=== PATIENT | female | born 1985 | race American Indian/Alaskan Native ===

== ENCOUNTER 2017-02-18 18:54 | Emergency (ER) | payer SELFPAY ==
[2017-02-18 19:41] VITALS: BP 129/91
== END 2017-02-18 21:00 | disposition left against medical advice (07) ==
LOC: ED 18:54
DX: R22.0 Localized swelling, mass and lump, head (principal); Z53.21 Procedure and treatment not carried out due to patient leaving prior to being seen by health care provider

== ENCOUNTER 2017-02-21 01:35 | Emergency (ER) | payer OTHER ==
[2017-02-21 07:49] VITALS: BP 135/93
--- NOTE | 2017-02-21 09:48 | Emergency Department Report ---
HPI - General Chief Complaint: Skin/Abscess/Foreign Body Time Seen by Provider: 02/21/17 09:10 - HPI HPI: Is a 31-year-old female presents to ED complaining of right cheek swelling and pain for the past 4 days. Patient states she went to [facility] in [place] on Friday and was given some antibiotics and pain meds. Patient states that she started to see some drainage from her right cheeks 2 days ago. Swelling is bit bigger since Friday. Patient denies any fevers/chills/ injuries to the face/chest pain/headache/dental pain ED Past Medical Hx - Past Medical History Previous Medical History?: Yes Hx Hypertension: No Hx Congestive Heart Failure: No Hx Diabetes: No Hx Deep Vein Thrombosis: No Hx Renal Disease: No Hx Sickle Cell Disease: No Hx Seizures: No Hx Asthma: Yes Hx COPD: No Hx HIV: No - Surgical History Past Surgical History?: Yes Additional Surgical History: c sect X2 - Social History Smoking Status: Never Smoker Substance Use Type: None - Medications Home Medications: Home Medications Medication Instructions Recorded Confirmed Last Taken Type Albuterol Sulfate [Proventil HFA] 2 puff INHALATION 6XD PRN 06/23/13 04/17/15 14:00 History 2 puffs ALBUTEROL Inhaler [Proair] 2 puff IH Q6H PRN #30 inha 04/17/15 Unknown Rx Docusate Sodium [Colace CAP] 100 mg PO BID #60 capsule 04/17/15 Unknown Rx Vit No.129/Iron/Folic 1 each PO QDAY 04/17/15 04/17/15 04/16/15 History [ Tablet] oxyCODONE /ACETAMINOPHEN [Percocet 1 tab PO Q6HR PRN #30 tablet 04/17/15 Unknown Rx 5/325 mg] Ibuprofen [Motrin 800 MG tab] 800 mg PO Q8HR PRN #90 tablet 02/21/17 Unknown Rx Sulfamethoxazole/Trimethoprim 1 each PO BID #20 tablet 02/21/17 Unknown Rx [Bactrim DS TAB] ED Review of Systems ROS: Stated complaint: R SIDE FACIAL SWELLING Other details as noted in HPI Constitutional: denies: chills, fever Eyes: denies: eye pain, eye discharge, vision change ENT: denies: ear pain, throat pain Respiratory: denies: cough, shortness of breath, wheezing Cardiovascular: denies: chest pain, palpitations Endocrine: no symptoms reported Gastrointestinal: denies: abdominal pain, nausea, diarrhea Genitourinary: denies: urgency, dysuria, discharge Musculoskeletal: denies: back pain, joint swelling, arthralgia Skin: denies: rash, lesions Neurological: denies: headache, weakness, paresthesias Psychiatric: denies: anxiety, depression Hematological/Lymphatic: denies: easy bleeding, easy bruising Physical Exam - Physical Exam Vital Signs: Vital Signs 02/21/17 02/21/17 02:06 07:47 Temperature 98.5 F 98.3 F Pulse Rate 99 H 94 H Respiratory 18 18 Rate Blood Pressure 136/91 Blood Pressure 135/93 [Right] O2 Sat by Pulse 100 Oximetry Physical Exam: GENERAL: Alert and oriented x3, no apparent distress, Normal Gait, atraumatic. HEAD: Head is normocephalic and a-traumatic. MOUTH:Mouth is well hydrated and without lesions. Tonsils nonerythematous or swollen, Uvula midline, Tongue not elevated. Mucous membranes are moist. Posterior pharynx clear, no exudate or lesions. Patent airways. NECK: Supple. Non edematous, No lymphadenopathy or thyromegaly. LUNGS: Symetrical with respiration, No wheezing, no rales or crackles, CTAB. HEART: S1, S2 present, regular rate and rhythm without murmur, no rubs, no gallops. Non tender to palpation SKIN: 4- 5 cm rising on right cheek, not erythematous, nonfluctuant, mild plus drainage seen. No active draining. Warm and dry, No lesions, No ulceration or induration present. ED Course Vital Signs 02/21/17 02/21/17 02:06 07:47 Temperature 98.5 F 98.3 F Pulse Rate 99 H 94 H Respiratory 18 18 Rate Blood Pressure 136/91 Blood Pressure 135/93 [Right] O2 Sat by Pulse 100 Oximetry ED Medical Decision Making - Medical Decision Making 31-year-old female presents with right cheek cellulitis ED course: Compression applied to the right cheek. Discussed with the patient patient to keep warm presents 3 times a day and drainage might continue to happen just fine just fine Discussed patient keep sterile dressing on right cheek. Discussed patient to take her antibiotics as prescribed. I discussed the patient to follow up with primary care 3 days Vital signs are normal patient is in no acute distress. Critical care attestation.: If time is entered above; I have spent that time in minutes in the direct care of this critically ill patient, excluding procedure time. ED Disposition Clinical Impression: Cellulitis of external cheek, right Disposition: DC-01 TO HOME OR SELFCARE Is pt being admited?: No Does the pt Need Aspirin: No Condition: Stable Instructions: Cellulitis (ED), Abscess (ED) Additional Instructions: Make sure to follow up with the primary care physician as discussed. Take all your medications as you've been prescribed. If you have any worsening symptoms or develop new symptoms please return to ED immediately Apply warm compress only 3 times a day. Prescriptions: Ibuprofen [Motrin 800 MG tab] 800 mg PO Q8HR PRN #90 tablet PRN Reason: Pain Sulfamethoxazole/Trimethoprim [Bactrim DS TAB] 1 each PO BID #20 tablet Referrals: PRIMARY CARE, [Primary Care Provider] - 3-5 Days [facility] [Outside] - 3-5 Days [facility] [Outside] - 3-5 Days [facility] [Outside] - 3-5 Days Forms: Work/School Release Form(ED) Time of Disposition: 09:51
== END 2017-02-21 10:17 | disposition home or self-care (01) ==
LOC: ED 01:35
DX: L03.211 Cellulitis of face (principal); J45.909 Unspecified asthma, uncomplicated
CPT/HCPCS: 99282

== ENCOUNTER 2020-01-10 11:41 | Outpatient (CLI) | payer OTHER, MEDICAID ==
[2020-01-10] MEDS ORDERED: LACTATED RINGERS 500 ML IV ONE (12:54)
[2020-01-10 13:30] VITALS: BP 127/87
[2020-01-10 13:33] LABS: Bacteria,Urine 1+ /HPF (Negative); Bilirubin,Urine NEG (Negative); Blood,Urine NEG (Negative); Color,Urine Straw (Yellow); Protein,Urine <15 mg/dL mg/dL (Negative); Urobilinogen,Urine < 2.0 mg/dL (<2.0)
== END 2020-01-10 13:52 | disposition home or self-care (01) ==
LOC: TRG 11:41 → APU 11:42 → TRG 13:52
PROVIDERS: ATTEND Obstetrics & Gynecology
DX: O26.892 Other specified pregnancy related conditions, second trimester (principal); R10.9 Unspecified abdominal pain; M54.5 Low back pain; Z3A.22 22 weeks gestation of pregnancy
CPT/HCPCS: 59025; 81001

== ENCOUNTER 2020-01-11 20:51 | Inpatient (IN) | payer OTHER, MEDICAID ==
[2020-01-11] MEDS ORDERED: LACTATED RINGERS 1,000 ML IV ONE (21:35)
[2020-01-11] MEDS ORDERED: diphenhydrAMINE 25 MG CAP PO PRN (22:05)
[2020-01-11] MEDS ORDERED: ACETAMINOPHEN 325 MG TAB PO PRN (22:05)
[2020-01-11] MEDS ORDERED: MAGNESIUM HYDROXIDE (MOM) ORAL LIQD UDC PO PRN (22:05)
[2020-01-11] MEDS ORDERED: guaiFENesin DM 200/20 MG ORAL LIQD 10 ML PO PRN (22:05)
[2020-01-11] MEDS ORDERED: SIMETHICONE 80 MG CHEW TAB PO PRN (22:05)
[2020-01-11] MEDS ORDERED: SENNOSIDES/DOCUSATE SODIUM 8.6/50 MG TAB PO PRN (22:05)
[2020-01-11] MEDS ORDERED: DOCUSATE SODIUM 100 MG CAP PO PRN (22:05)
[2020-01-11] MEDS ORDERED: ONDANSETRON 4 MG/2 ML INJ IV PRN (22:05)
[2020-01-11] MEDS ORDERED: SODIUM CHLORIDE NASAL SPRAY 44ML NS PRN (22:05)
[2020-01-11] MEDS ORDERED: ALUM-MAG HYDROXIDE-SIMETHICONE 200-200-20MG/5ML ORAL LIQD 30 ML PO PRN (22:05)
--- NOTE | 2020-01-11 22:05 | History and Physical Report ---
History of Present Illness Date of examination: 01/11/20 Chief complaint: leaking fluid since 2016 tonight History of present illness: EDC Confirmation: 05/12/2020 Past History : 4 Term Births: 1 Premature Births: 2 Living Children: 2 Para: 3 Mult. Births: 0 Prev : 2 Aborta: 0 Elect. Ab: 0 Spont. Ab: 0 Ectopics: 0 # 1 Delivery date: 2013 Weeks Gestation: term labor: no Delivery type: Delivery location: [facility] Infant Sex: Female weight: 6# Comments: transverse # 2 Delivery date: 2014 Weeks Gestation: 20 labor: yes Delivery type: Delivery location: [place] Comments: Stillborn # 3 Delivery date: 2015 labor: yes Delivery type: Delivery location: [facility] weight: 3# Past Medical History: Asthma - PRN inhaler Past Surgical History: c/s x2 Past Medical History Surgery (Non-cook fry): c/s x2 Abnormal PAP: negative Family Hx: htn - mother, father DM - great aunt no known family hx cancer 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 Infection History Hx of STD: none HIV Risk Eval: low risk Hepatitis B Risk Eval: low risk Varicella/Chicken Pox Status: Previous Disease Genetic History Congenital Heart Defect: Mom: no Dad: no Sandra Disease: Mom: no Dad: no Thalassemia Mom: no Dad: no Neural Tube Defect Mom: no Dad: no Down's Syndrome Mom: no Dad: no Hitesh-Sachs Mom: no Dad: no Sickle Cell Disease/Trait Mom: no Dad: no Hemophilia Mom: no Dad: no Muscular Dystrophy Mom: no Dad: no Cystic Fibrosis Mom: no Dad: no Jerauld Chorea Mom: no Dad: no Mental Retardation Mom: no Dad: no Fragile X Mom: no Dad: no Other Genetic/Chromosomal Disorder Mom: no Dad: no Child w/other defect Mom: no Dad: no Enviromental Exposures Xray Exposure: no Medication, drug, or alcohol use since LMP: no Chemical/Other Exposure: no Exposure to Cat Liter: no Hx of Parvovirus (Fifth Disease): no Occupational Exposure to Children: none Active Medications (reviewed today): PNV () Current Allergies (reviewed today): No known allergies Past History Past Medical History: other (see HPI) Past Surgical History: other (see HPI) 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 (see HPI) Family/Genetic History: other (see HPI) - Obstetrical History Expected Date of Delivery: 05/12/20 Actual Gestation: 22 Week(s) 5 Day(s) : 4 Para: 3 Hx # Term Pregnancies: 1 Number of Pregnancies: 2 Spontaneous Abortions: 0 Induced : 0 Number of Living Children: 1 Medications and Allergies Allergies Allergy/AdvReac Type Severity Reaction Status Date / Time No Known Allergies Allergy Verified 02/18/17 19:39 Home Medications Medication Instructions Recorded Confirmed Last Taken Type Vitamin 1 tab PO DAILY 01/11/20 01/11/20 01/10/20 History Active Meds: Active Medications Lactated Ringer's (Lactated Ringers) 1,000 mls @ 999 mls/hr IV BOLUS ONE Stop: 01/11/20 22:35 Review of Systems All systems: negative - Vital Signs Vital signs: Vital Signs Pulse BP Pulse Ox 91 H 131/79 100 01/11/20 21:11 01/11/20 21:11 01/11/20 21:11 Temp Pulse Resp BP Pulse Ox 98.2 F 88 18 131/79 99 01/11/20 21:12 01/11/20 21:56 01/11/20 21:12 01/11/20 21:12 01/11/20 21:56 - Physical Exam Breasts: Positive: normal Cardiovascular: Regular rate Lungs: Positive: Clear to auscultation, Normal air movement Abdomen: Positive: normal appearance, soft Genitourinary (Female): Positive: normal external genitalia, normal perenium Vulva: both: normal Vagina: Positive: other (moderate amount of clear, yellow amniotic fluid) Uterus: Positive: normal size, normal contour Anus/Rectum: Positive: normal perianal skin Extremities: Positive: normal - Obstetrical FHR: auscultation normal Uterine Contraction Monitor Mode: External Cervical Dilatation: 0 station: -4 Uterine Contraction Pattern: Absent Uterine Tone Measurement Phase: Resting Results Result Diagrams: 01/12/20 Unknown All other labs normal. Assessment and Plan 34y/o @ 22+4 weeks admitted with SROM. Sterile spec + pooling. GABRIELLE decreased on u/s. baby is vertex. her hx is significant for delivery x 2, (one spontaneous and one d/t pre-e and IUGR) She also has hx c/s x 2. Plan to admit for antibiotics. She denies any cramping or contractions. Abd soft and non-tender. no current s/s infection. [facility] aware. - Patient Problems (1) 22 weeks gestation of Current Visit: Yes Status: Acute (2) premature rupture of membranes (PPROM) with unknown onset of labor Current Visit: Yes Status: Acute Plan to address problem: Amp & EES AMFM consult
--- NOTE | 2020-01-11 23:51 | Ultrasound Report ---
US OB FOLLOW UP INDICATION / CLINICAL INFORMATION: PROM. COMPARISON: None available. FINDINGS: There is a single intrauterine with an estimated sonographic gestational age of 21 weeks 6 days and an EDC of 05/17/20. Clinical dates are 22 weeks 4 days. The heart rate fluctuates betw een 76 and 151 bpm. presentation is cephalic. Amniotic fluid volume is significantly decreased with an GABRIELLE of 2.8 cm. The placenta is located posteriorly and laterally on the left, is grade 0 and is free of the os. anatomy is difficult to evaluate due to the decreased amniotic fluid volume. The cervix measures 3.9 cm in length and the internal os appears closed. There is no evidence of adn exal mass or free fluid. IMPRESSION: 1. Oligohydramnios. 2. Significant fluctuation of the heart rate between 76 and 152 bpm. Signer Name: Marcus Petty MD Signed: 01/11/2020 11:47 PM Workstation Name: [id number]
[2020-01-12] MEDS: AMPICILLIN/NS 2 GM/100 ML 2 GM/100 ML BAG IV SCH ×4 (00:29→18:30)
[2020-01-12] MEDS: LACTATED RINGERS 1,000 ML IV SCH ×2 (00:30→13:00)
[2020-01-12 01:05] LABS: Basophils # (Auto) 0.1 K/mm3 (0.0-0.1); Basophils % (Auto) 0.7 % (0.0-1.8); Eosinophils # (Auto) 0.3 K/mm3 (0.0-0.4); Hematocrit 34.1 % (30.3-42.9); Hemoglobin 11.9 gm/dl (10.1-14.3); Lymphocytes # (Auto) 2.3 K/mm3 (1.2-5.4); Lymphocytes % (Auto) 24.3 % (13.4-35.0); Mean Corpuscular HGB Conc 35 % (30-34); Mean Corpuscular Volume 88 fl (79-97); Monocytes # (Auto) 0.7 K/mm3 (0.0-0.8); Monocytes % (Auto) 7.7 % (0.0-7.3); Platelet Count 207 K/mm3 (140-440); Red Blood Count 3.89 M/mm3 (3.65-5.03); Red Cell Distribution Width 13.9 % (13.2-15.2)
[2020-01-12] MEDS: ERYTHROMYCIN LACTOBIONATE 250 MG in SODIUM CHLORIDE 0.9% 100 ML IV SCH ×4 (01:33→20:20)
[2020-01-12] MEDS ORDERED: ZOLPIDEM 5 MG TAB PO ONE (02:48)
[2020-01-12] MEDS: PRENATAL VIT27-FE FUMARATE-FOLIC ACID VIT TAB PO SCH (09:45)
--- NOTE | 2020-01-12 12:21 | Consultation ---
Medications and Allergies Allergies Allergy/AdvReac Type Severity Reaction Status Date / Time No Known Allergies Allergy Verified 02/18/17 19:39 Home Medications Medication Instructions Recorded Confirmed Last Taken Type Vitamin 1 tab PO DAILY 01/11/20 01/11/20 01/10/20 History Active Meds: Active Medications Acetaminophen (Tylenol) 650 mg PO Q4H PRN PRN Reason: Pain MILD(1-3)/Fever >100.5/AMARAL Al Hydrox/Mg Hydrox/Simethicone (Alum-Mag Hydrox-Simeth [phone]/5ml) 30 ml PO Q6H PRN PRN Reason: Indigestion Diphenhydramine HCl (Benadryl) 25 mg PO Q6H PRN PRN Reason: Itching Docusate Sodium (Colace) 100 mg PO Q12H PRN PRN Reason: Constipation Guaifenesin (Guaifenesin Dm Syrup) 10 ml PO Q6H PRN PRN Reason: Cough Lactated Ringer's (Lactated Ringers) 1,000 mls @ 125 mls/hr IV DIRECT SAURABH Last Admin: 01/12/20 00:30 Dose: 125 mls/hr Documented by: Ampicillin Sodium (Ampicillin/Ns 2 Gm/100 Ml) 2 gm in 100 mls @ 100 mls/hr IV Q6HR SAURABH; Protocol Stop: 01/13/20 18:59 Last Admin: 01/12/20 11:53 Dose: 100 mls/hr Documented by: Erythromycin Lactobionate 250 (mg/ Sodium Chloride) 100 mls @ 100 mls/hr IV Q6HR SAURABH; Protocol Stop: 01/13/20 18:59 Last Admin: 01/12/20 07:45 Dose: 100 mls/hr Documented by: Magnesium Hydroxide (Milk Of Magnesia) 30 ml PO QHS PRN PRN Reason: Laxative Effect Multivitamins/Iron/Calcium ( Vitamin) 1 each PO QDAY SAURABH Last Admin: 01/12/20 09:45 Dose: 1 each Documented by: Ondansetron HCl (Zofran) 4 mg IV Q6H PRN PRN Reason: Nausea And Vomiting Senna/Docusate Sodium (Senokot S) 2 tab PO Q12H PRN PRN Reason: Laxative Effect Simethicone (Mylicon) 80 mg PO Q6H PRN PRN Reason: Gas pain Sodium Chloride (Deep Sea) 2 spray NS Q4H PRN PRN Reason: Congestion Exam - Constitutional Vitals: Temp Pulse Resp BP Pulse Ox 98 F 85 18 100/62 82 L 01/12/20 11:52 01/12/20 12:00 01/11/20 23:36 01/12/20 12:00 01/12/20 04:28 Results - Labs CBC & Chem 7: 01/12/20 Unknown Labs: Abnormal lab results 01/12/20 Range/Units Unknown MCHC 35 H (30-34) % [place] % (Auto) 7.7 H (0.0-7.3) % Assessment and Plan AMFM Pt seen Consult to follow
--- NOTE | 2020-01-12 13:45 | Progress Note ---
Assessment and Plan A: 34 y.o. @ 22 + wks, with PPROM. P: Will continue with current management. Awaiting [facility] recommendations. Subjective - Subjective Date of service: 01/12/20 (Pt feeling well.) Principal diagnosis: IUP @ 22 + wks, PPROM on 01/10 @ 2014 Patient reports: loss of fluid (Still leaking small amounts of clear fluid. States not as much as before. ), movement normal Objective - Vital Signs Vital Signs: Vital Signs - 12hr 01/12/20 01/12/20 01/12/20 02:00 02:30 03:01 Temperature Pulse Rate 86 87 86 Blood Pressure 121/85 112/56 140/63 O2 Sat by Pulse Oximetry 01/12/20 01/12/20 01/12/20 03:30 04:00 04:28 Temperature Pulse Rate 111 H 99 H 49 L Blood Pressure 119/65 101/57 O2 Sat by Pulse 82 L Oximetry 01/12/20 01/12/20 01/12/20 04:30 04:42 05:01 Temperature 97.9 F Pulse Rate 108 H 83 Blood Pressure 135/80 113/72 O2 Sat by Pulse Oximetry 01/12/20 01/12/20 01/12/20 05:30 06:00 06:30 Temperature Pulse Rate 85 90 99 H Blood Pressure 106/65 105/62 109/64 O2 Sat by Pulse Oximetry 01/12/20 01/12/20 01/12/20 07:00 07:31 07:57 Temperature 98.1 F Pulse Rate 89 78 78 Blood Pressure 118/75 109/70 O2 Sat by Pulse Oximetry 01/12/20 01/12/20 01/12/20 07:59 08:00 08:30 Temperature Pulse Rate 83 101 H 75 Blood Pressure 116/74 117/72 116/75 O2 Sat by Pulse Oximetry 01/12/20 01/12/20 01/12/20 09:08 09:30 10:00 Temperature Pulse Rate 96 H 101 H 95 H Blood Pressure 121/67 123/72 109/67 O2 Sat by Pulse Oximetry 01/12/20 01/12/20 01/12/20 10:30 11:00 11:30 Temperature Pulse Rate 83 79 75 Blood Pressure 109/69 118/75 100/58 O2 Sat by Pulse Oximetry 01/12/20 01/12/2020 11:52 12:00 13:00 Temperature 98 F Pulse Rate 75 85 89 Blood Pressure 100/62 107/65 O2 Sat by Pulse Oximetry 01/12/20 01/12/20 13:30 13:44 Temperature 97.9 F Pulse Rate 101 H 101 H Blood Pressure 120/67 O2 Sat by Pulse Oximetry - Exam Narrative Exam: Pt states that she is doing well. Not having any contractions on the monitor and not feeling them. Denies vag bleeding. States that she is currently not leaking any more fluid. [facility] and [facility] told her that the plan was to keep her as long as possible. Discussed that if she has any vaginal bleeding, vaginal or rectal pressure to call RN and immediately let the RNs know. Breasts: deferred Lungs: Normal air movement Abdomen: Present: normal appearance, soft Vulva: both: normal FHR: other (Appropriate for gestational age) Uterine Contraction Monitor Mode: External Uterine Contraction Pattern: Absent Extremities: normal Deep Tendon Reflex Grade: Normal +2 - Labs Labs: Abnormal Labs 01/12/20 Unknown MCHC 35 H [place] % (Auto) 7.7 H Laboratory Results - last 24 hr 01/12/20 01/12/20 01/12/20 00:25 Unknown Unknown WBC 9.5 RBC 3.89 Hgb 11.9 Hct 34.1 MCV 88 MCH 31 MCHC 35 H RDW 13.9 Plt Count 207 Lymph % (Auto) 24.3 [place] % (Auto) 7.7 H Eos % (Auto) 3.0 Baso % (Auto) 0.7 Lymph # (Auto) 2.3 [place] # (Auto) 0.7 Eos # (Auto) 0.3 Baso # (Auto) 0.1 Seg Neutrophils % 64.3 Seg Neutrophils # 6.1 Syphilis IgG Antibody Nonreactive Rubella IgG Antibody Immune Blood Type A POSITIVE Antibody Screen Negative
[2020-01-13] MEDS: ERYTHROMYCIN LACTOBIONATE 250 MG in SODIUM CHLORIDE 0.9% 100 ML IV SCH ×4 (01:30→23:12)
[2020-01-13] MEDS: AMPICILLIN/NS 2 GM/100 ML 2 GM/100 ML BAG IV SCH ×4 (06:00→18:19)
[2020-01-13] MEDS: LACTATED RINGERS 1,000 ML IV SCH ×2 (06:27→20:00)
--- NOTE | 2020-01-13 06:36 | Progress Note ---
<ALISHA FAGAN - Last Filed: 01/13/20 07:50> Assessment and Plan - Patient Problems (1) premature rupture of membranes (PPROM) with unknown onset of labor Onset Date: ~01/11/20 Current Visit: Yes Status: Acute Plan to address problem: Pt states she has minimal fluid leaking at this time. [facility] saw pt yesterday BMZ ordered. Complete ABX as ordered. Del indicated @ 34w if no s/sx of chorio (2) 22 weeks gestation of Onset Date: ~01/13/20 Current Visit: Yes Status: Acute Plan to address problem: Pt in very good spirits No c/o voiced Afebrile Pt reports good FM FHT + doppler PPROM 01/11/20 Now 22w6d Will continue POC as noted Consult from [facility] is on pt's chart Subjective - Subjective Date of service: 01/13/20 (pt in good spirits) Principal diagnosis: IUP @ 22w6d wks, PPROM on 01/10 @ 2014 Patient reports: loss of fluid (Still leaking small amounts of clear fluid. States not as much as before. ), movement normal Objective - Vital Signs Vital Signs: Vital Signs - 12hr 01/12/20 01/12/20 01/12/20 18:30 18:37 19:00 Temperature 98.2 F Pulse Rate 90 90 89 Respiratory Rate Blood Pressure 114/71 116/69 Blood Pressure [Right] O2 Sat by Pulse Oximetry 01/12/20 01/12/20 01/12/20 19:15 19:23 19:31 Temperature 98 F Pulse Rate 90 75 Respiratory 18 Rate Blood Pressure 121/97 105/64 Blood Pressure [Right] O2 Sat by Pulse Oximetry 01/12/20 01/12/20 01/12/20 20:00 21:01 22:00 Temperature Pulse Rate 71 64 69 Respiratory Rate Blood Pressure 115/75 141/80 123/76 Blood Pressure [Right] O2 Sat by Pulse Oximetry 01/12/20 01/12/20 01/12/20 22:30 23:00 23:30 Temperature 97.9 F Pulse Rate 68 73 71 Respiratory Rate Blood Pressure 141/70 129/67 119/74 Blood Pressure [Right] O2 Sat by Pulse Oximetry 01/13/20 01/13/20 01/13/20 00:00 00:30 01:00 Temperature 98.2 F Pulse Rate 93 H 79 73 Respiratory 16 Rate Blood Pressure 121/69 132/73 111/70 Blood Pressure 121/69 [Right] O2 Sat by Pulse 98 Oximetry 01/13/20 01/13/20 01/13/20 01:50 02:01 02:30 Temperature Pulse Rate 73 73 70 Respiratory Rate Blood Pressure 145/76 117/82 109/69 Blood Pressure [Right] O2 Sat by Pulse Oximetry 01/13/20 01/13/20 01/13/20 03:00 03:30 04:00 Temperature 98 F Pulse Rate 81 64 68 Respiratory 18 Rate Blood Pressure 106/66 101/65 Blood Pressure 104/56 [Right] O2 Sat by Pulse 98 Oximetry 01/13/20 04:01 Temperature Pulse Rate 68 Respiratory Rate Blood Pressure 104/56 Blood Pressure [Right] O2 Sat by Pulse Oximetry - Exam Breasts: deferred Cardiovascular: Regular rate Lungs: Normal air movement Abdomen: Present: normal appearance, soft. Absent: distention, tenderness Vulva: both: normal Uterus: Present: normal FHR: auscultation normal Uterine Contraction Monitor Mode: External Uterine Contraction Pattern: Absent Extremities: normal Deep Tendon Reflex Grade: Normal +2 - Labs Labs: Abnormal Labs 01/12/20 Unknown MCHC 35 H [place] % (Auto) 7.7 H <CHRIS BEEBE - Last Filed: 01/13/20 08:11> Assessment and Plan AMFM note reviewed. Patient has not had the NICU consultation and is unsure about her desires for resuscitation at 23 weeks vs 24 weeks. Melinda RN was present during the our conversation, Ms. Alcala desires to discuss prognosis with NICU at this time, BMZ has been ordered. Instrd RN to proceed with BMZ if the patient desires to do so w/ or w/o NICU consultation. Questions were encouraged and answered. She voiced understanding. Objective - Vital Signs Vital Signs: Vital Signs - 12hr 01/12/20 01/12/20 01/12/20 20:00 21:01 22:00 Temperature Pulse Rate 71 64 69 Respiratory Rate Blood Pressure 115/75 141/80 123/76 Blood Pressure [Right] O2 Sat by Pulse Oximetry 01/12/20 01/12/20 01/12/20 22:30 23:00 23:30 Temperature 97.9 F Pulse Rate 68 73 71 Respiratory Rate Blood Pressure 141/70 129/67 119/74 Blood Pressure [Right] O2 Sat by Pulse Oximetry 01/13/20 01/13/20 01/13/20 00:00 00:30 01:00 Temperature 98.2 F Pulse Rate 93 H 79 73 Respiratory 16 Rate Blood Pressure 121/69 132/73 111/70 Blood Pressure 121/69 [Right] O2 Sat by Pulse 98 Oximetry 01/13/20 01/13/20 01/13/20 01:50 02:01 02:30 Temperature Pulse Rate 73 73 70 Respiratory Rate Blood Pressure 145/76 117/82 109/69 Blood Pressure [Right] O2 Sat by Pulse Oximetry 01/13/20 01/13/20 01/13/20 03:00 03:30 04:00 Temperature 98 F Pulse Rate 81 64 68 Respiratory 18 Rate Blood Pressure 106/66 101/65 Blood Pressure 104/56 [Right] O2 Sat by Pulse 98 Oximetry 01/13/20 01/13/20 01/13/20 04:01 06:00 07:11 Temperature 98.6 F Pulse Rate 68 76 Respiratory Rate Blood Pressure 104/56 111/62 Blood Pressure [Right] O2 Sat by Pulse Oximetry 01/13/20 01/13/20 01/13/20 07:12 07:43 07:48 Temperature 98.1 F Pulse Rate 76 87 85 Respiratory 18 Rate Blood Pressure Blood Pressure 111/62 [Right] O2 Sat by Pulse 100 97 100 Oximetry 01/13/20 07:53 Temperature Pulse Rate 89 Respiratory Rate Blood Pressure Blood Pressure [Right] O2 Sat by Pulse 100 Oximetry - Labs Labs: Abnormal Labs 01/12/20 Unknown MCHC 35 H [place] % (Auto) 7.7 H
[2020-01-13] MEDS: PRENATAL VIT27-FE FUMARATE-FOLIC ACID VIT TAB PO SCH (09:03)
--- NOTE | 2020-01-13 14:32 | Event Note ---
Date: 01/13/20 Spoke with patient by phone with Mandy HERRING present at bedside. pt desires to proceed with steroid therapy now. Order given to Mandy to proceed with BMZ as ordered.
[2020-01-13] MEDS: BETAMET ACET/BETAMET NA PH 6 MG/ML INJ 5 ML MDV IM SCH (14:45)
--- NOTE | 2020-01-13 14:48 | Consultation ---
Consult Note - Parent Education I met with parent(s) and discussed the following:: Need for NICU admission, Poss ible need for intubation and surfactant or other resp support, Temperature regulation, Head ultrasounds to evaluate IVH, Eye exams for ROP screening, Possible need for IV fluids/TPN and IV antibiotics, Possible need for umbilical lines, Importance of providing breast milk & encouraged pumping aft delivery, Donor breast milk if baby meets criteria after , Slow feeding advancement and monitoring of tolerance. NG/OG feeds, Need to monitor for jaundice, Data for survival & survival without significant co-morbidities Parent(s) demonstrated understanding of all the information:: Yes Additional Comment: Ms. Alcala is a 34 yo with a history of 1 full term delivery, 1 stillborn at 20 weeks r/t placental abruption, and one other premature delivery - with BW at 3lbs. She presented to [facility] on 01/11/20 with leaking of amniotic fluid and was confirmed to have PROM/oligohydramnios with GABRIELLE of 2.8. Her EDC is 05/12/2020 with current gestational age of 22.6weeks by dates. She has a hx of pre-eclampsia with last and hx of x 2. In addition, we discussed option for comfort care only for her infant if she delivers before 24 weeks. She states at this time she wants to give her daughter every chance that she can and requests the NICU team be present at her delivery for resuscitation/stabilization. Assessment and Plan - Assessment Gestation:: 22.6 Estimated Weight: 340 grams on 12/30/19 - at perinatology visit Baby's gender: Female - Plan Plan: Agree with steroids Will attend delivery Please call NICU with questions or if mother needs to further discuss viability, risk for IVH, cerebral palsy, ROP, and chronic lung disease.
[2020-01-14] MEDS: ERYTHROMYCIN BASE 250 MG CAPSULE DR PO SCH ×3 (06:15→21:43)
[2020-01-14] MEDS: AMOXICILLIN 250 MG CAP PO SCH ×3 (06:15→21:43)
--- NOTE | 2020-01-14 07:59 | Progress Note ---
Assessment and Plan Pt is a 34 y.o. @ 23 wks today, SROM on 01/10 for clear fluid. Pt aware of plan to continue with antibiotics as ordered, and monitor maternal temperatures, s/sx of abruption or labor, and distress. Second dose of steroids due @ 1445 today. Subjective - Subjective Date of service: 01/14/20 (Pt states not feeling ctxs. Small amount of LOF, clear. ) Principal diagnosis: IUP @ 22w6d wks, PPROM on 01/10 Patient reports: movement normal Objective - Vital Signs Vital Signs: Vital Signs - 12hr 01/13/20 01/13/20 01/13/20 20:03 20:08 20:13 Temperature Pulse Rate 72 79 86 Blood Pressure O2 Sat by Pulse 100 100 100 Oximetry 01/13/20 01/13/20 01/13/20 20:15 20:17 20:18 Temperature Pulse Rate 68 85 82 Blood Pressure 118/75 O2 Sat by Pulse 92 97 Oximetry 01/13/20 01/13/20 01/13/20 20:23 20:26 20:28 Temperature Pulse Rate 85 77 75 Blood Pressure O2 Sat by Pulse 100 92 97 Oximetry 01/13/20 01/13/20 01/13/20 20:33 20:38 20:43 Temperature Pulse Rate 79 96 H 89 Blood Pressure O2 Sat by Pulse 100 99 100 Oximetry 01/13/20 01/13/20 01/13/20 20:46 20:48 20:53 Temperature Pulse Rate 83 80 84 Blood Pressure O2 Sat by Pulse 85 100 99 Oximetry 01/13/20 01/13/20 01/13/20 20:58 21:04 21:10 Temperature Pulse Rate 100 H Blood Pressure O2 Sat by Pulse 93 64 L 84 Oximetry 01/13/20 01/13/20 01/13/20 21:11 21:27 21:30 Temperature 98.9 F Pulse Rate 153 H 84 Blood Pressure O2 Sat by Pulse 98 100 Oximetry 01/13/20 01/13/20 01/13/20 21:32 21:37 21:42 Temperature Pulse Rate 88 87 80 Blood Pressure O2 Sat by Pulse 100 100 100 Oximetry 01/13/20 01/13/20 01/13/20 21:47 21:52 21:57 Temperature Pulse Rate 79 120 H 130 H Blood Pressure O2 Sat by Pulse 100 82 L 84 Oximetry 01/13/20 01/13/20 01/13/20 21:58 22:03 22:08 Temperature Pulse Rate 124 H 81 87 Blood Pressure O2 Sat by Pulse 83 L 100 100 Oximetry 01/13/20 01/13/20 01/13/20 22:13 22:18 22:23 Temperature Pulse Rate 87 83 84 Blood Pressure O2 Sat by Pulse 100 99 100 Oximetry 01/13/20 01/13/20 01/13/20 22:28 22:33 22:38 Temperature Pulse Rate 83 96 H 89 Blood Pressure O2 Sat by Pulse 100 100 99 Oximetry 01/13/20 01/13/20 01/13/20 22:43 22:48 22:53 Temperature Pulse Rate 89 89 80 Blood Pressure O2 Sat by Pulse 100 100 100 Oximetry 01/13/20 01/13/20 01/13/20 22:58 23:03 23:08 Temperature Pulse Rate 69 82 87 Blood Pressure O2 Sat by Pulse 100 100 100 Oximetry 01/13/20 01/13/20 01/13/20 23:13 23:18 23:23 Temperature Pulse Rate 104 H 79 75 Blood Pressure O2 Sat by Pulse 100 99 99 Oximetry 01/13/20 01/13/20 01/13/20 23:28 23:33 23:38 Temperature Pulse Rate 79 81 76 Blood Pressure O2 Sat by Pulse 99 98 99 Oximetry 01/13/20 01/13/20 01/13/20 23:43 23:48 23:53 Temperature Pulse Rate 79 78 85 Blood Pressure O2 Sat by Pulse 98 99 98 Oximetry 01/13/20 01/14/20 01/14/20 23:58 00:00 00:05 Temperature 98.0 F Pulse Rate 83 59 L 88 Blood Pressure O2 Sat by Pulse 99 84 82 L Oximetry 01/14/20 01/14/20 01/14/20 00:10 00:15 00:20 Temperature Pulse Rate 104 H 90 95 H Blood Pressure O2 Sat by Pulse 100 98 99 Oximetry 01/14/20 01/14/20 01/14/20 00:25 00:30 00:35 Temperature Pulse Rate 90 91 H 95 H Blood Pressure O2 Sat by Pulse 100 100 99 Oximetry 01/14/20 01/14/20 01/14/20 00:40 00:42 00:45 Temperature Pulse Rate 103 H 126 H 95 H Blood Pressure O2 Sat by Pulse 100 89 90 Oximetry 01/13/20 30/20 01/13/20 00:50 00:55 01:00 Temperature Pulse Rate 87 84 80 Blood Pressure O2 Sat by Pulse 100 99 99 Oximetry 01/14/2001/13/20 01/14/20 01:05 01:10 01:15 Temperature Pulse Rate 76 77 75 Blood Pressure O2 Sat by Pulse 98 98 98 Oximetry 01/14/2001/13/01/14/20 01:20 01:25 01:30 Temperature Pulse Rate 79 79 77 Blood Pressure O2 Sat by Pulse 97 97 97 Oximetry 01/14/2001/13/01/13/ 01:35 01:40 01:45 Temperature Pulse Rate 76 77 92 H Blood Pressure O2 Sat by Pulse 97 97 100 Oximetry 01/14/2001/13/01/14/20 01:50 01:55 02:00 Temperature 98.1 F Pulse Rate 93 H 80 79 Blood Pressure O2 Sat by Pulse 98 98 98 Oximetry 01/14/2001/13/01/14/20 02:05 02:10 02:15 Temperature Pulse Rate 76 79 80 Blood Pressure O2 Sat by Pulse 99 98 98 Oximetry 01/14/2001/13/01/14/20 02:20 02:25 02:30 Temperature Pulse Rate 84 78 78 Blood Pressure O2 Sat by Pulse 100 98 98 Oximetry 01/14/2001/13/20 01/13/20 02:35 02:40 02:45 Temperature Pulse Rate 78 70 76 Blood Pressure O2 Sat by Pulse 98 100 99 Oximetry 01/14/2001/13/01/14/20 02:50 02:55 03:00 Temperature Pulse Rate 68 68 63 Blood Pressure O2 Sat by Pulse 98 98 98 Oximetry 01/14/2001/13/20 01/13/20 03:05 03:10 03:15 Temperature Pulse Rate 67 75 76 Blood Pressure O2 Sat by Pulse 98 96 97 Oximetry 01/14/2030/20 30/20 03:20 03:25 03:30 Temperature Pulse Rate 77 72 77 Blood Pressure O2 Sat by Pulse 97 97 97 Oximetry 01/14/2030/20 30/20 03:35 03:40 03:45 Temperature Pulse Rate 70 72 76 Blood Pressure O2 Sat by Pulse 97 97 98 Oximetry 01/14/20 01/14/20 01/14/20 03:50 03:55 04:00 Temperature Pulse Rate 69 67 71 Blood Pressure O2 Sat by Pulse 97 97 97 Oximetry 01/14/20 01/14/20 01/14/20 04:05 04:10 04:15 Temperature Pulse Rate 68 67 68 Blood Pressure O2 Sat by Pulse 97 98 98 Oximetry 01/14/20 01/14/20 01/14/20 04:20 04:25 04:30 Temperature Pulse Rate 66 72 67 Blood Pressure O2 Sat by Pulse 98 98 98 Oximetry 01/14/20 01/14/20 01/14/20 04:35 04:40 04:45 Temperature Pulse Rate 67 67 107 H Blood Pressure O2 Sat by Pulse 98 97 98 Oximetry 01/14/20 01/14/20 01/14/20 04:50 04:55 05:00 Temperature Pulse Rate 80 71 83 Blood Pressure O2 Sat by Pulse 99 98 98 Oximetry 01/14/20 01/14/20 01/14/20 05:03 05:05 05:12 Temperature Pulse Rate 69 172 H 126 H Blood Pressure O2 Sat by Pulse 87 83 L 83 L Oximetry 01/14/20 01/14/20 01/14/20 05:18 05:19 05:24 Temperature Pulse Rate 77 86 80 Blood Pressure O2 Sat by Pulse 77 L 91 96 Oximetry 01/14/20 01/14/20 01/14/20 05:29 05:32 05:34 Temperature Pulse Rate 74 76 89 Blood Pressure O2 Sat by Pulse 99 91 97 Oximetry 01/14/20 01/14/20 01/14/20 05:39 05:44 05:49 Temperature Pulse Rate 79 80 75 Blood Pressure O2 Sat by Pulse 100 100 97 Oximetry 01/14/20 01/14/20 01/14/20 05:54 05:59 06:00 Temperature 98.4 F Pulse Rate 80 71 Blood Pressure O2 Sat by Pulse 98 99 Oximetry 01/14/20 01/14/20 01/14/20 06:04 06:09 06:14 Temperature Pulse Rate 80 89 82 Blood Pressure O2 Sat by Pulse 99 98 100 Oximetry 01/14/20 01/14/20 01/14/20 06:19 06:24 06:29 Temperature Pulse Rate 84 86 91 H Blood Pressure O2 Sat by Pulse 98 100 99 Oximetry 01/14/20 01/14/20 01/14/20 06:34 06:39 06:44 Temperature Pulse Rate 81 85 73 Blood Pressure O2 Sat by Pulse 99 100 99 Oximetry 01/14/20 01/14/20 01/14/20 06:49 06:54 06:59 Temperature Pulse Rate 72 86 85 Blood Pressure O2 Sat by Pulse 99 99 97 Oximetry 01/14/20 01/14/20 01/14/20 07:00 07:04 07:09 Temperature Pulse Rate 90 94 H 74 Blood Pressure O2 Sat by Pulse 93 99 98 Oximetry 01/14/20 01/14/20 01/14/20 07:14 07:19 07:24 Temperature Pulse Rate 77 75 73 Blood Pressure O2 Sat by Pulse 98 98 98 Oximetry 01/14/20 01/14/20 01/14/20 07:29 07:34 07:39 Temperature Pulse Rate 78 75 96 H Blood Pressure O2 Sat by Pulse 98 98 99 Oximetry 01/14/20 01/14/20 01/14/20 07:44 07:46 07:51 Temperature Pulse Rate 90 169 H 150 H Blood Pressure O2 Sat by Pulse 99 81 L 82 L Oximetry 01/14/20 07:56 Temperature Pulse Rate 105 H Blood Pressure O2 Sat by Pulse 83 L Oximetry - Exam Breasts: deferred Cardiovascular: Regular rate Lungs: Normal air movement Abdomen: Present: normal appearance, soft Vulva: both: normal Uterus: Present: normal FHR: auscultation normal Uterine Contraction Monitor Mode: External Uterine Contraction Pattern: Absent Extremities: normal Deep Tendon Reflex Grade: Normal +2 - Labs Labs: Abnormal Labs 01/12/20 Unknown MCHC 35 H [place] % (Auto) 7.7 H Laboratory Results - last 24 hr 01/12/20 Unknown Coronavirus (PCR) Negative
[2020-01-14] MEDS: BETAMET ACET/BETAMET NA PH 6 MG/ML INJ 5 ML MDV IM SCH (14:51)
[2020-01-14] MEDS: PRENATAL VIT27-FE FUMARATE-FOLIC ACID VIT TAB PO SCH (14:55)
[2020-01-14] MEDS ORDERED: ALBUTEROL 2.5 MG/3 ML NEBU IH PRN (20:47)
[2020-01-14] MEDS ORDERED: ACETAMINOPHEN 325 MG TAB PO PRN (20:49)
[2020-01-15] MEDS: AMOXICILLIN 250 MG CAP PO SCH ×3 (05:31→22:50)
[2020-01-15] MEDS: ERYTHROMYCIN BASE 250 MG CAPSULE DR PO SCH (05:31)
--- NOTE | 2020-01-15 09:09 | Progress Note ---
Assessment and Plan IUP at 23 1/7 weeks gestation PROM Prior CS x 2 desires resuscitation at 23 weeks - s/p BMZ and NICU consult Rec: Continue to monitor for labor , chorioamnionitis Complete latency antibiotics NST q shift , continuous monitoring if non reassuring tracing twice weekly BPP at 28 weeks Growth scans q 3 weeks Delivery at 34 0/7 weeks , sooner if indicated Subjective - Subjective Date of service: 01/15/20 Principal diagnosis: IUP @ 03/23 , PPROM on 01/10 @ 2014 Patient reports: loss of fluid (denied bleeding or contractions), movement normal Objective - Vital Signs Vital Signs: Vital Signs - 12hr 01/14/20 01/15/20 01/15/20 22:53 00:43 05:30 Temperature 97.8 F Pulse Rate 78 78 Pulse Rate [ 70 Bilateral] Respiratory 18 Rate Respiratory 18 Rate [Bilateral ] Blood Pressure 125/77 114/68 O2 Sat by Pulse Oximetry 01/15/20 01/15/20 05:38 05:39 Temperature Pulse Rate 64 70 Pulse Rate [ Bilateral] Respiratory Rate Respiratory Rate [Bilateral ] Blood Pressure O2 Sat by Pulse 100 90 Oximetry - Exam Narrative Exam: laying in bed NAD Abdomen: Present: soft (non tender) - Labs Labs: Abnormal Labs 01/12/20 Unknown MCHC 35 H [place] % (Auto) 7.7 H
[2020-01-15] MEDS: PRENATAL VIT27-FE FUMARATE-FOLIC ACID VIT TAB PO SCH (10:14)
--- NOTE | 2020-01-15 13:04 | Progress Note ---
Assessment and Plan UP at 23 1/7 weeks gestation PROM no s/s chorioamnionitis today Prior CS x 2 desires resuscitation at 23 weeks - s/p BMZ (Completed 01/14/20)and NICU consult(completed 01/14/2020) Rec: Continue to monitor for labor , chorioamnionitis Complete latency antibiotics (d#4) NST q shift , continuous monitoring if non reassuring tracing twice weekly BPP at 28 weeks Growth scans q 3 weeks Delivery at 34 0/7 weeks , sooner if indicated - Patient Problems (1) 23 weeks gestation of Current Visit: Yes Status: Acute (2) Maternal care due to low transverse uterine scar from previous delivery Current Visit: Yes Status: Acute (3) premature rupture of membranes (PPROM) with unknown onset of labor Onset Date: ~01/11/20 Current Visit: Yes Status: Acute Subjective - Subjective Date of service: 01/15/20 Principal diagnosis: IUP @ 23 03/23 , PPROM on 01/10 Interval history: No complaints Patient reports: loss of fluid (denied bleeding or contractions, leaks~1-2 times a day, clear, no odor), movement normal, no contractions Objective - Vital Signs Vital Signs: Vital Signs - 12hr 01/15/20 01/15/20 01/15/20 05:30 05:38 05:39 Temperature 97.8 F Pulse Rate 78 64 70 Respiratory 18 Rate Blood Pressure 114/68 Blood Pressure [Right] O2 Sat by Pulse 100 90 Oximetry 01/15/20 01/15/20 01/15/20 05:58 09:21 09:24 Temperature Pulse Rate 77 61 Respiratory Rate Blood Pressure 116/72 111/71 Blood Pressure [Right] O2 Sat by Pulse 75 L Oximetry 01/15/20 01/15/20 01/15/20 09:25 09:26 09:27 Temperature 98.4 F Pulse Rate 61 94 H 81 Respiratory 16 Rate Blood Pressure Blood Pressure 111/71 [Right] O2 Sat by Pulse 99 99 88 Oximetry - Exam Breasts: deferred Cardiovascular: Regular rate Lungs: Clear to auscultation, Normal air movement Abdomen: Present: normal appearance, soft. Absent: distention, tenderness Uterus: Absent: tenderness FHR: category 1 Uterine Contraction Monitor Mode: External Uterine Contraction Pattern: Absent Extremities: normal Deep Tendon Reflex Grade: Normal +2 - Labs Labs: Abnormal Labs 01/12/20 Unknown MCHC 35 H [place] % (Auto) 7.7 H
[2020-01-15] MEDS ORDERED: AMOXICILLIN 250 MG CAP PO SCH (22:00)
[2020-01-15] MEDS ORDERED: ERYTHROMYCIN BASE 250 MG CAPSULE DR PO SCH (22:00)
[2020-01-16] MEDS: ERYTHROMYCIN BASE 250 MG CAPSULE DR PO SCH ×3 (00:08→16:06)
[2020-01-16] MEDS: AMOXICILLIN 250 MG CAP PO SCH ×3 (06:42→22:25)
[2020-01-16] MEDS: PRENATAL VIT27-FE FUMARATE-FOLIC ACID VIT TAB PO SCH (10:31)
--- NOTE | 2020-01-16 12:54 | Progress Note ---
Assessment and Plan UP at 23 2/7 weeks gestation PROM no s/s chorioamnionitis today Prior CS x 2 desires resuscitation at 23 weeks - s/p BMZ (Completed 01/14/20)and NICU consult(completed 01/14/2020) Rec: Continue to monitor for labor, chorioamnionitis Complete latency antibiotics (d#5) NST q shift , continuous monitoring if non reassuring tracing twice weekly BPP at 28 weeks Growth scans q 3 weeks Delivery at 34 0/7 weeks , sooner if indicated - Patient Problems (1) 23 weeks gestation of Current Visit: Yes Status: Acute (2) Maternal care due to low transverse uterine scar from previous delivery Current Visit: Yes Status: Acute (3) premature rupture of membranes (PPROM) with unknown onset of labor Onset Date: ~01/11/20 Current Visit: Yes Status: Acute Subjective - Subjective Date of service: 01/16/20 Principal diagnosis: IUP @ 23 2/7 , PPROM on 01/10 Interval history: No complaints Patient reports: loss of fluid (denied bleeding or contractions, leaks~1-2 times a day, clear, no odor), movement normal, no new complaints, no contractions Objective - Vital Signs Vital Signs: Vital Signs - 12hr 01/16/20 01/16/20 01/16/20 02:58 04:00 07:47 Temperature 97.7 F Pulse Rate 75 Respiratory 18 Rate Blood Pressure 108/60 Blood Pressure [Right] O2 Sat by Pulse 97 Oximetry 01/16/20 01/16/20 01/16/20 07:48 07:49 12:20 Temperature 97.9 F Pulse Rate 66 68 Respiratory 18 Rate Blood Pressure 110/67 122/75 Blood Pressure 110/67 [Right] O2 Sat by Pulse 98 81 L 77 L Oximetry 01/16/20 12:21 Temperature 98.3 F Pulse Rate 67 Respiratory 18 Rate Blood Pressure Blood Pressure 122/75 [Right] O2 Sat by Pulse 98 Oximetry - Exam Abdomen: Present: soft. Absent: distention, tenderness - Labs Labs: Abnormal Labs 01/12/20 Unknown MCHC 35 H [place] % (Auto) 7.7 H
[2020-01-17] MEDS: ERYTHROMYCIN BASE 250 MG CAPSULE DR PO SCH ×5 (02:00→19:00)
[2020-01-17] MEDS: AMOXICILLIN 250 MG CAP PO SCH ×3 (06:19→22:00)
--- NOTE | 2020-01-17 07:33 | Progress Note ---
Assessment and Plan A: 34 y.o. @ 23.3 wks, PPROM. Stable, continues to leak small amounts of clear fluid, no ctxs. P: Continue with current antepartum care. Subjective - Subjective Date of service: 01/17/20 (Pt doing well) Principal diagnosis: IUP @ 23 3/ , PPROM on 01/10 @ 2014 Patient reports: loss of fluid (denied bleeding or contractions, leaks~1-2 times a day, clear, no odor), movement normal, no new complaints, no contractio ns Objective - Vital Signs Vital Signs: Vital Signs - 12hr 01/16/20 01/17/20 01/17/20 19:43 00:55 00:56 Temperature 98.5 F 98.3 F Pulse Rate 68 72 72 Respiratory 18 Rate Blood Pressure 113/58 103/58 Blood Pressure 113/58 103/58 [Right] 01/17/20 06:21 Temperature 97.9 F Pulse Rate 70 Respiratory Rate Blood Pressure 121/56 Blood Pressure 121/56 [Right] - Exam Narrative Exam: Pt denies ctxs, vaginal bleeding. Breasts: deferred Cardiovascular: Regular rate Lungs: Normal air movement Abdomen: Present: normal appearance, soft Vulva: both: normal Uterus: Present: normal FHR: auscultation normal (Appropriate for gestational age. ) Uterine Contraction Pattern: Absent Extremities: normal Deep Tendon Reflex Grade: Normal +2 - Labs Labs: Abnormal Labs 01/12/20 Unknown MCHC 35 H [place] % (Auto) 7.7 H
[2020-01-17] MEDS: PRENATAL VIT27-FE FUMARATE-FOLIC ACID VIT TAB PO SCH (10:26)
[2020-01-17 14:12] LABS: Platelet Count TNR K/mm3 (140-440)
[2020-01-17 14:14] LABS: Hemoglobin TNR gm/dl (10.1-14.3); Red Blood Count TNR M/mm3 (3.65-5.03)
[2020-01-17 14:15] LABS: Hematocrit TNR % (30.3-42.9); Mean Corpuscular Volume TNR fl (79-97)
[2020-01-17 14:16] LABS: Lymphocytes % (Auto) TNR % (13.4-35.0); Mean Corpuscular HGB Conc TNR % (30-34); Red Cell Distribution Width TNR % (13.2-15.2)
[2020-01-17 14:17] LABS: Basophils % (Auto) TNR % (0.0-1.8); Eosinophils # (Auto) TNR K/mm3 (0.0-0.4); Eosinophils % (Auto) TNR % (0.0-4.3); Lymphocytes # (Auto) TNR K/mm3 (1.2-5.4); Monocytes # (Auto) TNR K/mm3 (0.0-0.8); Monocytes % (Auto) TNR % (0.0-7.3)
[2020-01-17 14:18] LABS: Basophils # (Auto) TNR K/mm3 (0.0-0.1)
[2020-01-17 20:20] LABS: Hematocrit 34.4 % (30.3-42.9); Mean Corpuscular HGB Conc 32 % (30-34); Mean Corpuscular Volume 91 fl (79-97); Platelet Count 177 K/mm3 (140-440); Red Blood Count 3.77 M/mm3 (3.65-5.03); Red Cell Distribution Width 13.9 % (13.2-15.2)
[2020-01-18] MEDS: ERYTHROMYCIN BASE 250 MG CAPSULE DR PO SCH ×3 (00:30→16:07)
[2020-01-18] MEDS: AMOXICILLIN 250 MG CAP PO SCH ×3 (06:08→21:38)
[2020-01-18] MEDS: PRENATAL VIT27-FE FUMARATE-FOLIC ACID VIT TAB PO SCH ×2 (10:15→10:36)
--- NOTE | 2020-01-18 10:46 | Progress Note ---
Assessment and Plan UP at 23 4/7 weeks gestation, pt in good spirits. PROM no s/s chorioamnionitis today Prior CS x 2 desires resuscitation at 23 weeks - s/p BMZ (Completed 01/14/20)and NICU consult(completed 01/14/2020) Rec: Continue to monitor for labor, chorioamnionitis Complete latency antibiotics NST q shift , continuous monitoring if non reassuring tracing twice weekly BPP at 28 weeks Growth scans q 3 weeks Delivery at 34 0/7 weeks , sooner if indicated - Patient Problems (1) premature rupture of membranes (PPROM) with unknown onset of labor Onset Date: ~01/11/20 Current Visit: Yes Status: Acute (2) 23 weeks gestation of Current Visit: Yes Status: Acute Subjective - Subjective Date of service: 01/18/20 Principal diagnosis: IUP @ 23 4/7 , PPROM on 01/10 @ 2014 Interval history: EDC Confirmation: 05/12/2020 Past History : 4 Term Births: 1 Premature Births: 2 Living Children: 2 Para: 3 Mult. Births: 0 Prev : 2 Aborta: 0 Elect. Ab: 0 Spont. Ab: 0 Ectopics: 0 # 1 Delivery date: 2013 Weeks Gestation: term labor: no Delivery type: Delivery location: [facility] Infant Sex: Female weight: 6# Comments: transverse # 2 Delivery date: 2014 Weeks Gestation: 20 labor: yes Delivery type: Delivery location: [place] Comments: Stillborn # 3 Delivery date: 2015 labor: yes Delivery type: Delivery location: [facility] weight: 3# Past Medical History: Asthma - PRN inhaler Past Surgical History: c/s x2 Past Medical History Surgery (Non-bariatric nurse): c/s x2 Abnormal PAP: negative Family Hx: htn - mother, father DM - great aunt no known family hx cancer 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 Infection History Hx of STD: none HIV Risk Eval: low risk Hepatitis B Risk Eval: low risk Varicella/Chicken Pox Status: Previous Disease Genetic History Congenital Heart Defect: Mom: no Dad: no Sandra Disease: Mom: no Dad: no Thalassemia Mom: no Dad: no Neural Tube Defect Mom: no Dad: no Down's Syndrome Mom: no Dad: no Hitesh-Sachs Mom: no Dad: no Sickle Cell Disease/Trait Mom: no Dad: no Hemophilia Mom: no Dad: no Muscular Dystrophy Mom: no Dad: no Cystic Fibrosis Mom: no Dad: no Charlotte Chorea Mom: no Dad: no Mental Retardation Mom: no Dad: no Fragile X Mom: no Dad: no Other Genetic/Chromosomal Disorder Mom: no Dad: no Child w/other defect Mom: no Dad: no Enviromental Exposures Xray Exposure: no Medication, drug, or alcohol use since LMP: no Chemical/Other Exposure: no Exposure to Cat Liter: no Hx of Parvovirus (Fifth Disease): no Occupational Exposure to Children: none Active Medications (reviewed today): PNV () Current Allergies (reviewed today): No known allergies Patient reports: loss of fluid (denied bleeding or contractions, leaks~1-2 times a day, clear, no odor), movement normal, no new complaints, no vaginal bleeding, no contractions Objective - Vital Signs Vital Signs: Vital Signs - 12hr 01/18/20 01/18/20 01/18/20 06:10 06:14 08:30 Temperature 98.2 F 98.5 F Pulse Rate 69 69 Respiratory 18 Rate Blood Pressure 119/62 Blood Pressure 119/62 [Right] O2 Sat by Pulse 98 Oximetry - Exam Breasts: normal Cardiovascular: Regular rate Lungs: Clear to auscultation, Normal air movement Abdomen: Present: normal appearance, soft. Absent: tenderness, guarding Vulva: both: normal Uterus: Present: normal, fundal height above umbilicus FHR: auscultation normal Uterine Tone Measurement Phase: Resting Extremities: normal - Labs Labs: Abnormal Labs 01/12/20 01/17/20 Unknown 19:50 WBC 12.3 H MCHC 35 H [place] % (Auto) 7.7 H Laboratory Results - last 24 hr 01/17/20 01/17/20 01/17/20 13:15 13:15 19:50 WBC TNR 12.3 H RBC TNR 3.77 Hgb TNR 11.0 Hct TNR 34.4 MCV TNR 91 MCH TNR 29 MCHC TNR 32 RDW TNR 13.9 Plt Count TNR 177 Lymph % (Auto) TNR [place] % (Auto) TNR Eos % (Auto) TNR Baso % (Auto) TNR Lymph # (Auto) TNR [place] # (Auto) TNR Eos # (Auto) TNR Baso # (Auto) TNR Add Manual Diff Complete Seg Neutrophils % TNR Seg Neutrophils # TNR Blood Type A POSITIVE Antibody Screen Negative
--- NOTE | 2020-01-18 12:45 | Progress Note ---
Assessment and Plan - Patient Problems (1) 23 weeks gestation of Current Visit: Yes Status: Acute (2) premature rupture of membranes (PPROM) with unknown onset of labor Onset Date: ~01/11/20 Current Visit: Yes Status: Acute Plan to address problem: Continue inpatient expectant management. Patient has received steroids and is completing antibiotics. NST q SHIFT. BPP twice a week beginning at 28 weeks. Growth every 3 weeks. Delivery is recommended at 34.0 weeks. (3) Advanced maternal age during in second trimester Current Visit: Yes Status: Acute Plan to address problem: Low risk M21 Subjective - Subjective Date of service: 01/18/20 Principal diagnosis: IUP @ 23 06/21 , PPROM on 01/10 @ 2014 Patient reports: loss of fluid (denied bleeding or contractions, leaks~1-2 times a day, clear, no odor), movement normal (She endorses movement.), other, no new complaints, no vaginal bleeding, no contractions Objective - Vital Signs Vital Signs: Vital Signs - 12hr 01/18/20 01/18/20 01/18/20 06:10 06:14 08:30 Temperature 98.2 F 98.5 F Pulse Rate 69 69 Respiratory 18 Rate Blood Pressure 119/62 Blood Pressure 119/62 [Right] O2 Sat by Pulse 98 Oximetry 01/18/20 12:23 Temperature Pulse Rate 87 Respiratory Rate Blood Pressure 118/65 Blood Pressure [Right] O2 Sat by Pulse Oximetry - Exam Abdomen: Present: soft, other (Nontender, gravid) FHR: category 1, other (140s, appropriate for gestational age) Extremities: other (No calf tenderness.) - Labs Labs: Abnormal Labs 01/12/20 01/17/20 Unknown 19:50 WBC 12.3 H MCHC 35 H [place] % (Auto) 7.7 H Laboratory Results - last 24 hr 01/17/20 01/17/20 01/17/20 13:15 13:15 19:50 WBC TNR 12.3 H RBC TNR 3.77 Hgb TNR 11.0 Hct TNR 34.4 MCV TNR 91 MCH TNR 29 MCHC TNR 32 RDW TNR 13.9 Plt Count TNR 177 Lymph % (Auto) TNR [place] % (Auto) TNR Eos % (Auto) TNR Baso % (Auto) TNR Lymph # (Auto) TNR [place] # (Auto) TNR Eos # (Auto) TNR Baso # (Auto) TNR Add Manual Diff Complete Seg Neutrophils % TNR Seg Neutrophils # TNR Blood Type A POSITIVE Antibody Screen Negative
[2020-01-19] MEDS: ERYTHROMYCIN BASE 250 MG CAPSULE DR PO SCH ×3 (00:16→17:47)
[2020-01-19] MEDS: AMOXICILLIN 250 MG CAP PO SCH ×2 (06:12→14:01)
--- NOTE | 2020-01-19 06:32 | Progress Note ---
Assessment and Plan UP at 23 5/7 weeks gestation, pt in good spirits. Afebrile PROM no s/s chorioamnionitis today Prior CS x 2 desires resuscitation at 23 weeks - s/p BMZ (Completed 01/14/20)and NICU consult(completed 01/14/2020) Rec: Continue to monitor for labor, chorioamnionitis Complete latency antibiotics NST q shift , continuous monitoring if non reassuring tracing twice weekly BPP at 28 weeks Growth scans q 3 weeks Delivery at 34 0/7 weeks , sooner if indicated - Patient Problems (1) premature rupture of membranes (PPROM) with unknown onset of labor Onset Date: ~01/11/20 Current Visit: Yes Status: Acute Subjective - Subjective Date of service: 01/19/20 (No c/o voiced) Principal diagnosis: IUP @ 23 5/7 , PPROM on 01/10 @ 2014 Z completed Patient reports: loss of fluid (denied bleeding or contractions, leaks~1-2 times a day, clear, no odor), movement normal (She endorses movement.), other, no new complaints, no vaginal bleeding, no contractions Objective - Vital Signs Vital Signs: Vital Signs - 12hr 01/18/20 01/19/20 01/19/20 20:12 01:10 01:17 Temperature 98.5 F 97.9 F Pulse Rate 86 73 73 Respiratory 18 18 Rate Blood Pressure 124/59 93/52 Blood Pressure 124/59 93/52 [Left] Blood Pressure 114/55 [Right] 01/19/20 04:42 Temperature 97.8 F Pulse Rate 72 Respiratory 18 Rate Blood Pressure 108/60 Blood Pressure 108/60 [Left] Blood Pressure [Right] - Exam Breasts: deferred Cardiovascular: Regular rate Lungs: Normal air movement Abdomen: Present: normal appearance, soft. Absent: distention, tenderness Uterus: Present: normal FHR: auscultation normal, category 1 Uterine Contraction Monitor Mode: External Uterine Contraction Pattern: Absent Uterine Tone Measurement Phase: Resting Extremities: normal - Labs Labs: Abnormal Labs 01/12/20 01/17/20 Unknown 19:50 WBC 12.3 H MCHC 35 H [place] % (Auto) 7.7 H
[2020-01-19] MEDS: PRENATAL VIT27-FE FUMARATE-FOLIC ACID VIT TAB PO SCH (10:10)
[2020-01-20] MEDS: ERYTHROMYCIN BASE 250 MG CAPSULE DR PO SCH ×3 (03:04→18:46)
[2020-01-20] MEDS: AMOXICILLIN 250 MG CAP PO SCH ×4 (03:04→22:05)
--- NOTE | 2020-01-20 07:53 | Progress Note ---
Assessment and Plan UP at 23 6/7 weeks gestation, pt in good spirits. PROM no s/s chorioamnionitis today Prior CS x 2 desires resuscitation at 23 weeks - s/p BMZ (Completed 01/14/20)and NICU consult(completed 01/14/2020) Rec: Continue to monitor for labor, chorioamnionitis Complete latency antibiotics NST q shift , continuous monitoring if non reassuring tracing twice weekly BPP at 28 weeks Growth scans q 3 weeks Delivery at 34 0/7 weeks , sooner if indicated - Patient Problems (1) premature rupture of membranes (PPROM) with unknown onset of labor Onset Date: ~01/11/20 Current Visit: Yes Status: Acute (2) 23 weeks gestation of Current Visit: Yes Status: Acute Subjective - Subjective Date of service: 01/20/20 Principal diagnosis: IUP @ 23 6/7 , PPROM on 01/10 @ 2014 [facility] completed Interval history: EDC Confirmation: 05/12/2020 Past History : 4 Term Births: 1 Premature Births: 2 Living Children: 2 Para: 3 Mult. Births: 0 Prev : 2 Aborta: 0 Elect. Ab: 0 Spont. 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 Abnormal PAP: negative Family Hx: htn - mother, father DM - great aunt no known family hx cancer Social 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 Infection History Hx of STD: none HIV Risk Eval: low risk Hepatitis B Risk Eval: low risk Varicella/Chicken Pox Status: Previous Disease Genetic History Congenital Heart Defect: Mom: no Dad: no Sandra Disease: Mom: no Dad: no Thalassemia Mom: no Dad: no Neural Tube Defect Mom: no Dad: no Down's Syndrome Mom: no Dad: no Hitesh-Sachs Mom: no Dad: no Sickle Cell Disease/Trait Mom: no Dad: no Hemophilia Mom: no Dad: no Muscular Dystrophy Mom: no Dad: no Cystic Fibrosis Mom: no Dad: no Jessie Chorea Mom: no Dad: no Mental Retardation Mom: no Dad: no Fragile X Mom: no Dad: no Other Genetic/Chromosomal Disorder Mom: no Dad: no Child w/other defect Mom: no Dad: no Enviromental Exposures Xray Exposure: no Medication, drug, or alcohol use since LMP: no Chemical/Other Exposure: no Exposure to Cat Liter: no Hx of Parvovirus (Fifth Disease): no Occupational Exposure to Children: none Active Medications (reviewed today): PNV () Current Allergies (reviewed today): No known allergies Patient reports: loss of fluid (denied bleeding or contractions, leaks infrequently; clear, no odor), movement normal (She endorses movement.), other, no new complaints, no vaginal bleeding, no contractions Objective - Vital Signs Vital Signs: Vital Signs - 12hr 01/19/20 23:06 Pulse Rate 85 Blood Pressure 120/55 - Exam Breasts: normal Cardiovascular: Regular rate Lungs: Normal air movement Abdomen: Present: normal appearance, soft. Absent: tenderness, guarding Vulva: both: normal Uterus: Present: normal FHR: category 1 Uterine Contraction Monitor Mode: External Uterine Contraction Pattern: Absent Uterine Tone Measurement Phase: Resting Extremities: normal - Labs Labs: Abnormal Labs 01/12/20 01/17/20 Unknown 19:50 WBC 12.3 H MCHC 35 H [place] % (Auto) 7.7 H
[2020-01-20] MEDS: PRENATAL VIT27-FE FUMARATE-FOLIC ACID VIT TAB PO SCH ×2 (10:46→10:53)
[2020-01-20 11:13] LABS: Hematocrit 36.2 % (30.3-42.9); Mean Corpuscular HGB Conc 33 % (30-34); Mean Corpuscular Volume 90 fl (79-97); Platelet Count 195 K/mm3 (140-440); Red Blood Count 4.01 M/mm3 (3.65-5.03)
[2020-01-20] MEDS: ACETAMINOPHEN 500 MG TAB PO PRN (13:12)
--- NOTE | 2020-01-20 16:13 | Progress Note ---
Assessment and Plan 1. IUP @ 23w6d 2. PROM 3. AMA Recommendations Continue inpatient expectant management. NST q SHIFT. BPP twice a week beginning at 28 weeks. Growth every 3 weeks. Delivery is recommended at 34.0 weeks (sooner for chorioamnionitis, labor or non-reassuring status. Subjective - Subjective Date of service: 01/20/20 Principal diagnosis: IUP @ 23 6 , PPROM on 01/10 @ 2015 [facility] completed Interval history: The patient reports she is doing well and has no complaints. Denies bleeding, contraction sor vaginal discharges. Continues to have leaking of fluid. Patient reports: loss of fluid (denied bleeding or contractions, leaks infrequently; clear, no odor), movement normal (She endorses movement.), other, no new complaints, no vaginal bleeding, no contractions Objective - Vital Signs Vital Signs: Vital Signs - 12hr 01/20/20 01/20/20 01/20/20 07:15 12:05 15:19 Temperature 97.6 F 98.1 F Pulse Rate 99 H Respiratory 14 Rate Blood Pressure 108/58 - Exam Abdomen: Present: soft - Labs Labs: Abnormal Labs 01/12/20 01/17/20 Unknown 19:50 WBC 12.3 H MCHC 35 H [place] % (Auto) 7.7 H Laboratory Results - last 24 hr 01/20/20 01/20/20 10:22 10:41 WBC 11.0 RBC 4.01 Hgb 12.0 Hct 36.2 MCV 90 MCH 30 MCHC 33 RDW 14.0 Plt Count 195 Blood Type A POSITIVE Antibody Screen Negative
[2020-01-21] MEDS: ERYTHROMYCIN BASE 250 MG CAPSULE DR PO SCH (03:04)
--- NOTE | 2020-01-21 08:11 | Progress Note ---
Assessment and Plan A: 34 y.o. PPROM. Now 24 wks. Stable. P: Continue with present management. Subjective - Subjective Date of service: 01/21/20 Principal diagnosis: IUP @ 23 08/21 , PPROM on 01/10 @ 2014 [facility] completed Patient reports: loss of fluid (denied bleeding or contractions, leaks infrequently; clear, no odor), movement normal (She endorses movement.), other, no new complaints, no vaginal bleeding, no contractions Objective - Vital Signs Vital Signs: Vital Signs - 12hr 01/20/20 01/21/20 01/21/20 20:33 00:39 06:29 Temperature 98 F Pulse Rate 69 89 Respiratory Rate Blood Pressure 120/67 113/62 Blood Pressure [Left] O2 Sat by Pulse Oximetry 01/21/20 01/21/20 07:37 07:39 Temperature 98.1 F Pulse Rate 80 75 Respiratory 18 Rate Blood Pressure 109/57 Blood Pressure 109/57 [Left] O2 Sat by Pulse 100 88 Oximetry - Exam Narrative Exam: Pt denies additional LOF. She also denies vag bleeding, ctxs. Discussed that if pt has any ctxs, vag bleeding to let the RN know immediately. Pt verbalized understanding. Breasts: deferred Cardiovascular: Regular rate Lungs: Normal air movement Abdomen: Present: normal appearance, soft Vulva: both: normal Uterus: Present: normal FHR: auscultation normal (Appropriate for gestational age. ) Uterine Contraction Monitor Mode: External Uterine Contraction Pattern: Absent Extremities: normal Deep Tendon Reflex Grade: Normal +2 - Labs Labs: Abnormal Labs 01/12/20 01/17/20 Unknown 19:50 WBC 12.3 H MCHC 35 H [place] % (Auto) 7.7 H Laboratory Results - last 24 hr 01/20/20 01/20/20 10:22 10:41 WBC 11.0 RBC 4.01 Hgb 12.0 Hct 36.2 MCV 90 MCH 30 MCHC 33 RDW 14.0 Plt Count 195 Blood Type A POSITIVE Antibody Screen Negative
[2020-01-21] MEDS: PRENATAL VIT27-FE FUMARATE-FOLIC ACID VIT TAB PO SCH (10:29)
[2020-01-21] MEDS: ACETAMINOPHEN 500 MG TAB PO PRN (10:54)
--- NOTE | 2020-01-22 08:38 | Progress Note ---
Assessment and Plan Pt in very good spirits. C/O AMARAL that she feels is from stress from a couple of phone calls yesterday. Will give Tylenol this AM and re-eval for relief. Encouraged hydration, pt has had BMs, reports good FM, denies ctx. ABX completed Will cont. POC as recommended by [facility]. All questions addressed. From [facility] consult on 01-20-2020 Assessment and Plan 1. IUP @ 24w1d today 01-22-20 2. PROM 3. AMA Recommendations Continue inpatient expectant management. NST q SHIFT. BPP twice a week beginning at 28 weeks. Growth every 3 weeks. Delivery is recommended at 34.0 weeks (sooner for chorioamnionitis, labor or non-reassuring status. - Patient Problems (1) premature rupture of membranes (PPROM) with unknown onset of labor Onset Date: ~01/11/20 Current Visit: Yes Status: Acute Subjective - Subjective Date of service: 01/22/20 (c/o stress AMARAL) Principal diagnosis: IUP @ 24w1d , PPROM on 01/10 @ 2014 [facility] completed; Latency ABX completed Patient reports: loss of fluid (denied bleeding or contractions, leaks infrequently; clear, no odor), movement normal (She endorses movement.), other (yellow mucous noted in underwear), no new complaints, no vaginal bleeding, no contractions Objective - Vital Signs Vital Signs: Vital Signs - 12hr 01/22/20 01/22/20 01/22/20 00:37 06:16 06:17 Temperature 98.1 F 98.3 F Pulse Rate 85 85 Blood Pressure 111/56 Blood Pressure 111/56 [Left] 01/22/20 01/22/20 01/22/20 08:06 08:07 08:15 Temperature 97.9 F Pulse Rate 103 H 93 H Blood Pressure 114/68 112/63 Blood Pressure [Left] - Exam Breasts: deferred Cardiovascular: Regular rate Lungs: Clear to auscultation Abdomen: Present: normal appearance, soft. Absent: distention, tenderness Vulva: both: normal Uterus: Present: normal FHR: auscultation normal, category 1 (NST being done) Uterine Contraction Monitor Mode: External Uterine Contraction Pattern: Absent Uterine Tone Measurement Phase: Resting Extremities: normal Deep Tendon Reflex Grade: Normal +2 - Labs Labs: Abnormal Labs 01/12/20 01/17/20 Unknown 19:50 WBC 12.3 H MCHC 35 H [place] % (Auto) 7.7 H
[2020-01-22] MEDS: ACETAMINOPHEN 500 MG TAB PO PRN (09:06)
--- NOTE | 2020-01-23 09:42 | Progress Note ---
Assessment and Plan Pt resting C/O some mild trreg cramping No ctx recorded during NST Encouraged hydration. AM care done Pt reports BM and passing gas. Received call from Dr Epstein She is enroute to see pt. Will note her assessment and plan when completed. Dr Epstein asked if there were any chges in POC. None @ this time. From [facility] consult on 01-20-2020 Assessment and Plan 1. IUP @ 24w2d today 01-23-20 2. PROM 3. AMA Recommendations Continue inpatient expectant management. NST q SHIFT. BPP twice a week beginning at 28 weeks. Growth every 3 weeks. Delivery is recommended at 34.0 weeks (sooner for chorioamnionitis, labor or non-reassuring status. - Patient Problems (1) premature rupture of membranes (PPROM) with unknown onset of labor Onset Date: ~01/11/20 Current Visit: Yes Status: Acute Subjective - Subjective Date of service: 01/23/20 (pt in good spirits RNST) Principal diagnosis: IUP @ 24w2d , PPROM on 01/10 @ 2014 [facility] completed; Latency ABX completed Patient reports: loss of fluid (denied bleeding or contractions, leaks infrequently; clear, no odor), movement normal (She endorses movement.), other (yellow mucous noted in underwear), no new complaints, no vaginal bleeding, no contractions Objective - Vital Signs Vital Signs: Vital Signs - 12hr 01/22/20 01/23/20 01/23/20 22:18 00:19 00:20 Temperature 97.8 F 97.8 F Pulse Rate 96 H Respiratory Rate Blood Pressure 131/75 Blood Pressure [Right] O2 Sat by Pulse Oximetry 01/23/20 01/23/20 01/23/20 02:00 04:00 04:03 Temperature 98.2 F 98.2 F Pulse Rate 88 Respiratory 17 Rate Blood Pressure 113/79 Blood Pressure [Right] O2 Sat by Pulse Oximetry 01/23/20 01/23/20 01/23/20 06:00 08:56 08:58 Temperature 98 F 98.1 F Pulse Rate 80 80 Respiratory 16 Rate Blood Pressure 115/63 Blood Pressure 115/63 [Right] O2 Sat by Pulse 100 Oximetry 01/23/20 08:59 Temperature Pulse Rate 82 Respiratory Rate Blood Pressure Blood Pressure [Right] O2 Sat by Pulse 98 Oximetry - Exam Breasts: deferred Cardiovascular: Regular rate Lungs: Normal air movement Abdomen: Present: normal appearance, soft. Absent: distention, tenderness Uterus: Present: normal FHR: auscultation normal Uterine Contraction Monitor Mode: External Uterine Contraction Pattern: Irregular (pt c/o irregular cramping Not recorded as ctx) Uterine Contraction Intensity: Mild Extremities: normal Deep Tendon Reflex Grade: Normal +2 - Labs Labs: Abnormal Labs 01/12/20 01/17/20 Unknown 19:50 WBC 12.3 H MCHC 35 H [place] % (Auto) 7.7 H
[2020-01-23] MEDS: LACTATED RINGERS 1,000 ML IV SCH (14:38)
--- NOTE | 2020-01-23 15:33 | Event Note ---
Date: 01/23/20 (call by RN that pt was hurting) Received call that pt was [place] Q7min by palpations Ctx not recoding on monitor. RN started IVFs and placed a ferguson cath. On my arrival pt was feeling better states pain is much less. Reactive NST. EFM removed belts were very tight. Will send UA, draw type & screen and CBC it has been 72 hours since last draw. Will remove ferguson and encouraged pt to po hydrate and freq urination with proper hygiene. Dr Thomson aware of occurrence.
[2020-01-23] MEDS: ACETAMINOPHEN 500 MG TAB PO PRN ×2 (16:11→21:37)
[2020-01-23 16:35] LABS: Bilirubin,Urine NEG (Negative); Blood,Urine NEG (Negative); Color,Urine Colorless (Yellow); Protein,Urine <15 mg/dL mg/dL (Negative); RBC,Urine < 1.0 /HPF (0.0-6.0); Urobilinogen,Urine < 2.0 mg/dL (<2.0)
[2020-01-23 16:50] LABS: Basophils % (Auto) 0.3 % (0.0-1.8); Eosinophils # (Auto) 0.2 K/mm3 (0.0-0.4); Eosinophils % (Auto) 1.2 % (0.0-4.3); Hematocrit 34.3 % (30.3-42.9); Hemoglobin 11.3 gm/dl (10.1-14.3); Lymphocytes # (Auto) 1.6 K/mm3 (1.2-5.4); Lymphocytes % (Auto) 12.1 % (13.4-35.0); Mean Corpuscular HGB Conc 33 % (30-34); Mean Corpuscular Volume 91 fl (79-97); Monocytes # (Auto) 1.3 K/mm3 (0.0-0.8); Monocytes % (Auto) 9.6 % (0.0-7.3); Platelet Count 165 K/mm3 (140-440); Red Blood Count 3.79 M/mm3 (3.65-5.03); Red Cell Distribution Width 14.1 % (13.2-15.2)
--- NOTE | 2020-01-23 17:08 | Progress Note ---
Assessment and Plan 1. IUP @ 24w2d 2. PROM 3. AMA Recommendations Continue inpatient expectant management. NST q SHIFT. BPP twice a week beginning at 28 weeks. Growth every 3 weeks. Delivery is recommended at 34.0 weeks (sooner for chorioamnionitis, labor or non-reassuring status). Subjective - Subjective Principal diagnosis: IUP @ 24w2d , PPROM on 01/10 @ 2014 [facility] completed; Latency ABX completed Interval history: The patient reports occasional lower abdominal cramps. Continue to have leaking. No bleeding or discharge. Reports movement. Patient reports: loss of fluid (denied bleeding or contractions, leaks inf requently; clear, no odor), movement normal (She endorses movement.), other (yellow mucous noted in underwear), no new complaints, no vaginal bleeding, no contractions Objective - Vital Signs Vital Signs: Vital Signs - 12hr 01/23/20 01/23/20 01/23/20 06:00 08:56 08:58 Temperature 98 F 98.1 F Pulse Rate 80 80 Respiratory 16 Rate Blood Pressure 115/63 Blood Pressure 115/63 [Right] O2 Sat by Pulse 100 Oximetry 01/23/20 01/23/20 01/23/20 08:59 12:00 14:05 Temperature 98.3 F 98.2 F Pulse Rate 82 95 H Respiratory 18 Rate Blood Pressure Blood Pressure 119/65 [Right] O2 Sat by Pulse 98 100 Oximetry 01/23/20 01/23/20 01/23/20 14:29 14:34 14:39 Temperature Pulse Rate 94 H 93 H 94 H Respiratory Rate Blood Pressure Blood Pressure [Right] O2 Sat by Pulse 99 99 100 Oximetry 01/23/20 01/23/20 01/23/20 14:42 14:44 14:49 Temperature Pulse Rate 91 H 93 H 93 H Respiratory Rate Blood Pressure 119/65 Blood Pressure [Right] O2 Sat by Pulse 100 100 Oximetry 01/23/20 01/23/20 01/23/20 14:54 14:59 15:04 Temperature Pulse Rate 95 H 95 H 87 Respiratory Rate Blood Pressure Blood Pressure [Right] O2 Sat by Pulse 100 100 100 Oximetry 01/23/20 01/23/20 01/23/20 15:07 15:09 15:14 Temperature Pulse Rate 85 98 H 85 Respiratory Rate Blood Pressure 117/65 Blood Pressure [Right] O2 Sat by Pulse 100 100 Oximetry 01/23/20 01/23/20 01/23/20 15:19 15:24 15:26 Temperature Pulse Rate 92 H 95 H 61 Respiratory Rate Blood Pressure Blood Pressure [Right] O2 Sat by Pulse 100 100 93 Oximetry - Exam Abdomen: Present: soft - Labs Labs: Abnormal Labs 01/12/20 01/17/20 01/23/20 Unknown 19:50 16:15 WBC 12.3 H 13.2 H MCHC 35 H Lymph % (Auto) 12.1 L [place] % (Auto) 7.7 H 9.6 H [place] # (Auto) 1.3 H Seg Neutrophils % 76.8 H Seg Neutrophils # 10.2 H Urine pH 01/23/20 Unknown WBC MCHC Lymph % (Auto) [place] % (Auto) [place] # (Auto) Seg Neutrophils % Seg Neutrophils # Urine pH 8.0 H Laboratory Results - last 24 hr 01/23/20 01/23/20 16:15 Unknown WBC 13.2 H RBC 3.79 Hgb 11.3 Hct 34.3 MCV 91 MCH 30 MCHC 33 RDW 14.1 Plt Count 165 Lymph % (Auto) 12.1 L [place] % (Auto) 9.6 H Eos % (Auto) 1.2 Baso % (Auto) 0.3 Lymph # (Auto) 1.6 [place] # (Auto) 1.3 H Eos # (Auto) 0.2 Baso # (Auto) 0.0 Seg Neutrophils % 76.8 H Seg Neutrophils # 10.2 H Urine Color Colorless Urine Turbidity Clear Urine pH 8.0 H Ur Specific [place] 1.004 Urine Protein <15 mg/dl Urine Glucose (UA) Neg Urine Ketones Neg Urine Blood Neg Urine Nitrite Neg Urine Bilirubin Neg Urine Urobilinogen < 2.0 Ur Leukocyte Esterase Neg Urine WBC (Auto) 0.0 Urine RBC (Auto) < 1.0 U Epithel Cells (Auto) < 1.0
[2020-01-23] MEDS ORDERED: TERBUTALINE 1 MG/1 ML INJ SUB-Q ONE ×2 (17:19→23:39)
[2020-01-23] MEDS ORDERED: diphenhydrAMINE 25 MG CAP PO ONE (23:36)
[2020-01-24] MEDS ORDERED: TERBUTALINE 1 MG/1 ML INJ ONE (04:07)
[2020-01-24] MEDS ORDERED: TERBUTALINE 1 MG/1 ML INJ SUB-Q ONE (04:09)
[2020-01-24] MEDS: ACETAMINOPHEN 500 MG TAB PO PRN (04:24)
[2020-01-24] MEDS: LACTATED RINGERS 1,000 ML IV SCH (04:26)
--- NOTE | 2020-01-24 07:00 | Progress Note ---
Assessment and Plan A: 34 y.o. @ 24.3 wks, SROM for approximately 2 weeks. Ctxs q 20 mins on monitor. Cervical exam . P: Spoke with Dr. Christianson, will continue to observe patient at this time. Continue EFM and observe for progressing labor s/sx. Continue to monitor pt temperature, s/sx of chorioamnionitis. Subjective - Subjective Date of service: 01/24/20 (Pt uncomfortable ith ctxs. ) Principal diagnosis: IUP @ 24w3d , PPROM on 01/10 @ 2014 [facility] completed; Latency ABX completed Patient reports: loss of fluid (denied bleeding or contractions, leaks infrequently; clear, no odor), movement normal (She endorses movement.), contractions (Pt states feeling ctxs. ), other (yellow mucous noted in underwear), no vaginal bleeding Objective - Vital Signs Vital Signs: Vital Signs - 12hr 01/23/20 01/23/20 01/23/20 19:49 19:50 23:52 Temperature 98.4 F Pulse Rate 93 H 93 H 93 H Respiratory 18 Rate Blood Pressure 119/74 Blood Pressure 119/74 [Right] O2 Sat by Pulse 89 Oximetry 01/23/20 01/23/20 01/24/20 23:56 23:57 00:02 Temperature 98.0 F Pulse Rate 89 109 H Respiratory Rate Blood Pressure Blood Pressure [Right] O2 Sat by Pulse 99 99 Oximetry 01/24/20 01/24/20 01/24/20 00:07 00:12 00:17 Temperature Pulse Rate 120 H 99 H 109 H Respiratory Rate Blood Pressure Blood Pressure [Right] O2 Sat by Pulse 99 99 99 Oximetry 01/24/20 01/24/20 01/24/20 00:22 00:27 00:32 Temperature Pulse Rate 101 H 90 86 Respiratory Rate Blood Pressure Blood Pressure [Right] O2 Sat by Pulse 98 99 98 Oximetry 01/24/20 01/24/20 01/24/20 00:37 00:42 00:47 Temperature Pulse Rate 93 H 92 H 87 Respiratory Rate Blood Pressure Blood Pressure [Right] O2 Sat by Pulse 98 98 98 Oximetry 01/24/20 01/24/20 01/24/20 00:52 00:57 01:02 Temperature Pulse Rate 89 86 88 Respiratory Rate Blood Pressure Blood Pressure [Right] O2 Sat by Pulse 98 98 99 Oximetry 01/24/20 01/24/20 01/24/20 01:07 01:12 01:17 Temperature Pulse Rate 88 86 93 H Respiratory Rate Blood Pressure Blood Pressure [Right] O2 Sat by Pulse 98 98 98 Oximetry 01/24/20 01/24/20 01/24/20 01:22 01:27 01:32 Temperature Pulse Rate 87 82 89 Respiratory Rate Blood Pressure Blood Pressure [Right] O2 Sat by Pulse 99 98 99 Oximetry 01/24/20 01/24/20 01/24/20 01:37 01:42 01:47 Temperature Pulse Rate 96 H 95 H 87 Respiratory Rate Blood Pressure Blood Pressure [Right] O2 Sat by Pulse 98 99 100 Oximetry 01/24/20 01/24/20 01/24/20 01:52 01:57 01:58 Temperature Pulse Rate 91 H 58 L 69 Respiratory Rate Blood Pressure Blood Pressure [Right] O2 Sat by Pulse 100 96 92 Oximetry 01/24/20 01/24/20 01/24/20 02:02 02:07 02:12 Temperature Pulse Rate 82 86 84 Respiratory Rate Blood Pressure Blood Pressure [Right] O2 Sat by Pulse 99 99 98 Oximetry 01/24/20 01/24/20 01/24/20 02:17 02:22 02:27 Temperature Pulse Rate 85 88 91 H Respiratory Rate Blood Pressure Blood Pressure [Right] O2 Sat by Pulse 100 99 99 Oximetry 01/24/20 01/24/20 01/24/20 02:32 02:37 02:42 Temperature Pulse Rate 92 H 90 88 Respiratory Rate Blood Pressure Blood Pressure [Right] O2 Sat by Pulse 99 99 99 Oximetry 01/24/20 01/24/20 01/24/20 02:47 02:52 02:57 Temperature Pulse Rate 85 83 85 Respiratory Rate Blood Pressure Blood Pressure [Right] O2 Sat by Pulse 99 99 100 Oximetry 01/24/20 01/24/20 01/24/20 04:00 04:17 04:18 Temperature 98.1 F Pulse Rate 103 H 93 H Respiratory Rate Blood Pressure 120/82 Blood Pressure [Right] O2 Sat by Pulse 100 Oximetry 01/24/20 01/24/20 01/24/20 04:22 04:27 04:32 Temperature Pulse Rate 109 H 113 H 102 H Respiratory Rate Blood Pressure Blood Pressure [Right] O2 Sat by Pulse 99 100 100 Oximetry 01/24/20 01/24/20 01/24/20 04:37 04:42 04:47 Temperature Pulse Rate 99 H 120 H 116 H Respiratory Rate Blood Pressure Blood Pressure [Right] O2 Sat by Pulse 100 100 100 Oximetry 01/24/20 01/24/20 01/24/20 04:52 04:57 05:02 Temperature Pulse Rate 112 H 118 H 114 H Respiratory Rate Blood Pressure Blood Pressure [Right] O2 Sat by Pulse 100 99 99 Oximetry 01/24/20 01/24/20 01/24/20 05:07 05:12 05:17 Temperature Pulse Rate 107 H 113 H 110 H Respiratory Rate Blood Pressure Blood Pressure [Right] O2 Sat by Pulse 100 100 100 Oximetry 01/24/20 01/24/20 01/24/20 05:22 05:27 05:32 Temperature Pulse Rate 112 H 105 H 103 H Respiratory Rate Blood Pressure Blood Pressure [Right] O2 Sat by Pulse 100 100 99 Oximetry 01/24/20 01/24/20 01/24/20 05:37 05:43 05:48 Temperature Pulse Rate 115 H 165 H 112 H Respiratory Rate Blood Pressure Blood Pressure [Right] O2 Sat by Pulse 100 75 L 99 Oximetry 01/24/20 01/24/20 01/24/20 05:53 05:58 06:03 Temperature Pulse Rate 104 H 101 H 107 H Respiratory Rate Blood Pressure Blood Pressure [Right] O2 Sat by Pulse 98 99 100 Oximetry 01/24/20 01/24/20 01/24/20 06:08 06:13 06:18 Temperature Pulse Rate 114 H 92 H 91 H Respiratory Rate Blood Pressure Blood Pressure [Right] O2 Sat by Pulse 100 98 98 Oximetry 01/24/20 01/24/20 01/24/20 06:23 06:28 06:33 Temperature Pulse Rate 102 H 91 H 91 H Respiratory Rate Blood Pressure Blood Pressure [Right] O2 Sat by Pulse 98 98 98 Oximetry - Exam Breasts: deferred Cardiovascular: Regular rate Lungs: Normal air movement Abdomen: Present: normal appearance, soft Vulva: both: normal Uterus: Present: normal FHR: auscultation normal Uterine Contraction Monitor Mode: External Cervical Dilatation: 2 Cervical Effacement Percentage: 50 station: 0 Uterine Contraction Pattern: Irregular Uterine Tone Measurement Phase: Resting Uterine Contraction Intensity: Moderate Extremities: normal Deep Tendon Reflex Grade: Normal +2 - Labs Labs: Abnormal Labs 01/12/20 01/17/20 01/23/20 Unknown 19:50 16:15 WBC 12.3 H 13.2 H MCHC 35 H Lymph % (Auto) 12.1 L [place] % (Auto) 7.7 H 9.6 H Will # (Auto) 1.3 H Seg Neutrophils % 76.8 H Seg Neutrophils # 10.2 H Urine pH 01/23/20 Unknown WBC MCHC Lymph % (Auto) Will % (Auto) Will # (Auto) Seg Neutrophils % Seg Neutrophils # Urine pH 8.0 H Laboratory Results - last 24 hr 01/23/20 01/23/20 01/23/20 16:15 16:20 Unknown WBC 13.2 H RBC 3.79 Hgb 11.3 Hct 34.3 MCV 91 MCH 30 MCHC 33 RDW 14.1 Plt Count 165 Lymph % (Auto) 12.1 L Will % (Auto) 9.6 H Eos % (Auto) 1.2 Baso % (Auto) 0.3 Lymph # (Auto) 1.6 Will # (Auto) 1.3 H Eos # (Auto) 0.2 Baso # (Auto) 0.0 Seg Neutrophils % 76.8 H Seg Neutrophils # 10.2 H Urine Color Colorless Urine Turbidity Clear Urine pH 8.0 H Ur Specific [place] 1.004 Urine Protein <15 mg/dl Urine Glucose (UA) Neg Urine Ketones Neg Urine Blood Neg Urine Nitrite Neg Urine Bilirubin Neg Urine Urobilinogen < 2.0 Ur Leukocyte Esterase Neg Urine WBC (Auto) 0.0 Urine RBC (Auto) < 1.0 U Epithel Cells (Auto) < 1.0 Blood Type A POSITIVE Antibody Screen Negative
[2020-01-24] MEDS ORDERED: fentaNYL 100 MCG/2 ML INJ IV PRN (10:00)
[2020-01-24] MEDS ORDERED: BICITRA ORAL LIQD 30ML PO NR (10:22)
[2020-01-24] MEDS ORDERED: METOCLOPRAMIDE 10 MG/2 ML INJ IV NR (10:22)
[2020-01-24] MEDS ORDERED: FAMOTIDINE 20 MG/2 ML INJ IV NR (10:22)
--- NOTE | 2020-01-24 10:29 | Anesthesia Day of Surgery ---
Anesthesia Day of Surgery - Day of Surgery Patient Examined: Yes Patient H&P Reviewed: Yes Patient is NPO: Yes
--- NOTE | 2020-01-24 10:29 | Anesthesia Consultation ---
Anesthesia Consult and Med Hx Date of service: 01/24/20 - Airway Anesthetic Teeth Evaluation: Good ROM Head & Neck: Adequate Mental/Hyoid Distance: Adequate Mallampati Class: Class II Intubation Access Assessment: Probably Good - Pulmonary Exam CTA: Yes - Cardiac Exam Cardiac Exam: RRR - Pre-Operative Health Status ASA Pre-Surgery Classification: ASA3 Proposed Anesthetic Plan: Spinal - Pulmonary Hx Asthma: Yes (last attack 2012) COPD: No Hx Pneumonia: No - Cardiovascular System Hx Hypertension: Yes (2014, 2016 & current) - Central Nervous System Hx Seizures: No Hx Psychiatric Problems: No - Endocrine Hx Renal Disease: No Hx End Stage Renal Disease: No Hx Hypothyroidism: No Hx Hyperthyroidism: No - Hematic Hx Anemia: No Hx Sickle Cell Disease: No - Other Systems Hx Alcohol Use: No
[2020-01-24] MEDS ORDERED: FAMOTIDINE 20 MG/2 ML INJ IV ONE (10:31)
[2020-01-24] MEDS ORDERED: BICITRA ORAL LIQD 30ML ONE (10:31)
[2020-01-24] MEDS ORDERED: ceFAZolin/Water 2 GM/20 ML 2 GM/20 ML SYRINGE IV ONE (10:32)
[2020-01-24] MEDS ORDERED: OXYTOCIN DRIP 30,000 MILLIUNITS/500 ML BAG IV ONE (10:32)
[2020-01-24] MEDS ORDERED: BUPIVACAINE/PF (0.5%) 5 MG/1 ML 30 ML VIAL INFILTRATI ONE (10:33)
[2020-01-24] MEDS ORDERED: DEXMEDETOMIDINE 200 MCG/2 ML VIAL IV ONE (10:33)
[2020-01-24] MEDS ORDERED: ONDANSETRON 4 MG/2 ML INJ ONE (10:33)
--- NOTE | 2020-01-24 10:55 | Event Note ---
Date: 01/24/20 Patient is complaining of regular contractions. Patient with a change in her cervix significant change in effacement and appears to be in early labor. Patient understands indication for section. Discussed with the patient the risks of severe prematurity including lung immaturity and increased risk of infections. Patient desires have everything done as previously noted. Patient informed the risks of the surgery include bleeding possibly bleeding heavy enough to require blood transfusion, infection possible damage to bowel bladder ureter. Patient understands she has increased risk of adjacent organ damage due to her previous surgeries. All questions answered. Patient agrees to proceed
[2020-01-24] MEDS ORDERED: LACTATED RINGERS 1000 ML IV SOLN IV ONE (10:56)
[2020-01-24] MEDS ORDERED: LACTATED RINGERS 1,000 ML IV SCH (11:00)
[2020-01-24] MEDS ORDERED: OXYTOCIN DRIP 30 UNITS/500 ML BAG IV SCH ×2 (11:00→15:11)
[2020-01-24] MEDS ORDERED: METHYLERGONOVINE MALEATE 0.2 MG/ML VIAL IM ONE ×2 (11:43)
[2020-01-24] MEDS ORDERED: KETOROLAC 30 MG/1 ML INJ ONE (12:14)
--- NOTE | 2020-01-24 12:37 | Operative Report ---
Operative Report Operative Report: Date of procedure: January 24, 2020 Pre-operative diagnosis: Intrauterine at 24 weeks 3 days with prolonged premature rupture membranes with onset set of premature labor. Previous sections Post-operative diagnosis: Same plus pelvic adhesive disease Procedure name(s): Repeat section. Low vertical uterus incision. With lysis of adhesions Surgeon: Oz Christianson MD Egg Breaker: Daisy Cotter CST Anesthesia: Spinal EBL: 500 cc Complications: None Findings: Patient with adhesions between the anterior abdominal wall and uterus in encapsulating the rectus muscles and omentum. Normal-appearing tubes and ovaries bilaterally normal uterus with adhesions anteriorly to the bladder. Underdeveloped lower uterine segment. Female infant weight and Apgars not available time this dictation Specimen(s): Placenta Procedure: The patient was brought to the operating room. A spinal was placed without any complications. She was then placed in left lateral tilt. Prepped and draped in the usual sterile manner. After testing for adequate anesthesia level, a Pfannenstiel incision was made through her previous scar. This incision was taken down to the fascia. The fascia was then nicked in the midline. This incision was extended out laterally with Dean scissors. The fascia was then sharply and bluntly from the underlying rectus muscles through thick scarring cryolysis adhesions between the anterior uterus and rectus muscles and omentum. The rectus muscles were bluntly and sharply . The peritoneum was then entered with the linecasting machine keyboard operator's fingers. This incision was spread vertically with care not to damage the bladder below. The bladder flap was then formed sharply and bluntly with Metzenbaum scissors. The Payam self-retaining tractor was then placed without any difficulty. A low vertical incision was made in lower uterine segment due to undue developed lower uterine segment. This incision was extended laterally with the operators fingers. The amniotic fluid was minimal but had a thick whitish appearance. The was delivered from the vertex position. Bulb suction on the mother's abdomen. Cord was double clamped and cut. The infant was then passed to the nursery personnel who were in attendance. The placenta was then bluntly removed. The uterus was then externalized and wiped clean the remaining products. The uterine incision was closed in layers. The first incision was closed in a lo cking manner using 0 Vicryl. This was followed by imbricating stitch also with 0 Vicryl. This closure was hemostatic. The bladder flap was irrigated and found to be hemostatic. The uterus was then placed back to the patient's abdomen. Surgicel was placed along the uterine closure. The retractors were removed. The rectus muscles were inspected and found to be hemostatic. The fascia was then closed in a running manner using 0 Vicryl. This incision was hemostatic irrigation Bovie. The skin was reapproximated with 4-0 Vicryl subcuticularly. Dermabond was placed aloneness skin closure. The patient tolerated procedure well. Her urine was clear. The was admitted to the intensive care nursery. The patient was accompanied to recovery room in good condition. Instrument count correct x3.
--- NOTE | 2020-01-24 13:10 | Post Anesthesia Evaluation ---
- Post Anesthesia Evaluation Patient Participated: Yes Airway Patent: Yes Stable Respiratory Function: Yes Nausea/Vomiting: No Temp > 96.8F: Yes Pain Manageable: Yes Adequeate Hydration: Yes Anesthesia Complications: No Block Receding Appropriately: Yes
--- NOTE | 2020-01-24 13:11 | Progress Note ---
Regional Anesthesia Block - Regional Anesthesia Block Start Time: 12:45 Stop Time: 12:50 Performed By:: JANIE GALEANO Procedure: U/S guided bilateral tap block performed for post-operative pain requested by Dr. Christianson. H&P & labs reviewed. Procedure explained, questions answered, consent obtained. Patient in the supine position with ekg, blood pressure cuff and pulse ox on and working in PACU. Timeout performed immediately before start of procedure. Probe placed in the mid-axillary line and the external oblique, internal oblique, and transverse abdominus muscles identified. Skin was cleansed with 0.5% Chlorahexadine and allowed to dry. A 4" 20 G Zaidi echogenic needle was advanced in plane until the tip was in the fascial plane between the internal oblique and the transverse abdominus. After negative aspiration 35 ml/side of [30 ml 0.5% Bupivacaine], [50 mcg dexmedetomidine], [10 mg dexamethasone], and [40 ml sterile saline] was injected in 5 ml increments with negative aspiration in between. Patient tolerated procedure well.
[2020-01-24] MEDS ORDERED: NALOXONE 0.4 MG/1 ML INJ IV PRN (15:11)
[2020-01-24] MEDS ORDERED: LANOLIN/ZINC/DIMETHICONE (LANSINOH) 7 GM TP PRN (15:11)
[2020-01-24] MEDS ORDERED: MAGNESIUM HYDROXIDE (MOM) ORAL LIQD UDC PO PRN (15:11)
[2020-01-24] MEDS ORDERED: HYDROcodone/ACETAMINOPHEN 5-325 MG TAB PO PRN (15:11)
[2020-01-24] MEDS ORDERED: ACETAMINOPHEN 325 MG TAB PO PRN (15:11)
[2020-01-24] MEDS ORDERED: SIMETHICONE 80 MG CHEW TAB PO PRN (15:11)
[2020-01-24] MEDS ORDERED: D5W/LACTATED RINGERS 1,000 ML IV SCH (15:11)
[2020-01-24] MEDS ORDERED: WITCH HAZEL/ GLYCERIN PAD TP PRN (15:11)
[2020-01-24] MEDS ORDERED: MORPHINE 4 MG/1 ML INJ IV PRN (16:00)
[2020-01-24] MEDS: ceFAZolin/NS 1 GM/50 ML 1 GM/50 ML BAG IV SCH (18:21)
[2020-01-24] MEDS: KETOROLAC 30 MG/1 ML INJ IV SCH (18:21)
[2020-01-24] MEDS ORDERED: PREGABALIN 25 MG CAP PO SCH (22:00)
[2020-01-25] MEDS: KETOROLAC 30 MG/1 ML INJ IV SCH ×2 (00:20→07:20)
[2020-01-25 01:13] LABS: Hemoglobin 11.2 gm/dl (10.1-14.3)
[2020-01-25] MEDS: ceFAZolin/NS 1 GM/50 ML 1 GM/50 ML BAG IV SCH (03:25)
[2020-01-25] MEDS: PREGABALIN 75 MG CAP PO SCH ×2 (03:34→21:40)
[2020-01-25] MEDS: HYDROcodone/ACETAMINOPHEN 5-325 MG TAB PO PRN ×2 (03:35→10:06)
[2020-01-25] MEDS ORDERED: DIPHtheria,PERTUSSIS(ACELL),TETANUS VACCINE/PF 0.5 ML VIAL IM ONE (06:00)
--- NOTE | 2020-01-25 08:15 | Progress Note ---
Assessment and Plan A: 34 y.o. s/p delivery, rpt , POD #1. Pain well controlled on medication. P: Continue with pathway. Advance diet as tolerated. Encourage ambulation. Anticipate discharge home on 01/25. Subjective - Subjective Date of service: 01/25/20 (Pt doing well. ) Principal diagnosis: s/p repeat @ , POD # 1 Patient reports: pain well controlled : in NICU Objective - Vital Signs Latest vital signs: Vital Signs Temp Pulse Resp BP BP Pulse Ox 01/25/20 04:50 97.8 F 65 20 97/45 98 01/25/20 00:27 98.0 F 86 18 118/87 98 01/24/20 21:15 97.8 F 81 18 117/75 98 01/24/20 17:25 98.2 F 86 18 112/71 01/24/20 14:54 130/73 01/24/20 14:52 98.6 F 89 20 131/83 99 01/24/20 14:08 98.1 F 01/24/20 14:01 84 16 113/70 97 01/24/20 13:31 89 20 108/84 99 01/24/20 13:16 75 16 123/72 98 01/24/20 13:01 69 16 110/72 01/24/20 12:51 78 15 119/67 01/24/20 12:46 81 14 109/90 01/24/20 12:41 97.9 F 85 17 83/61 01/24/20 10:48 128 H 100 01/24/20 10:43 112 H 100 01/24/20 10:38 123 H 100 01/24/20 10:34 118 H 92 01/24/20 10:33 120 H 96 01/24/20 10:28 118 H 99 01/24/20 10:23 124 H 100 01/24/20 10:18 117 H 97 01/24/20 10:13 112 H 100 01/24/20 10:08 117 H 100 01/24/20 10:03 111 H 100 01/24/20 09:58 124 H 100 01/24/20 09:53 111 H 100 01/24/20 09:48 118 H 100 01/24/20 09:43 122 H 97 01/24/20 09:38 113 H 100 01/24/20 09:33 120 H 100 01/24/20 09:28 104 H 100 01/24/20 09:23 126 H 100 01/24/20 09:18 115 H 100 01/24/20 09:13 113 H 100 01/24/20 09:08 122 H 100 01/24/20 09:03 99 H 99 01/24/20 08:58 95 H 99 01/24/20 08:53 103 H 100 01/24/20 08:48 98 H 100 01/24/20 08:43 101 H 100 01/24/20 08:38 102 H 100 01/24/20 08:33 119 H 98 01/24/20 08:28 97 H 99 01/24/20 08:23 101 H 100 01/24/20 08:18 104 H 100 01/24/20 08:13 99 H 100 Intake and Output 01/24/20 01/25/20 01/25/20 22:59 06:59 14:59 Intake Total 650 480 Output Total 500 1300 Balance 150 -820 Intake: IV 50 ANCEF/NS 1 GM/50 ML 1 gm 50 In 50 ml @ 100 mls/hr IV Q8H [facility] Rx#:[id number] Oral 600 480 Output: Urine 500 1300 Indwelling Catheter 500 1100 Void 200 Other: Total, Intake Amount 240 240 Total, Output Amount 400 200 - Exam Breasts: Present: deferred Cardiovascular: Present: Regular rate Lungs: Present: Normal air movement Abdomen: Present: normal appearance, soft Vulva: both: normal Uterus: Present: normal, firm Extremities: Present: normal Deep Tendon Reflex Grade: Normal +2 Incision: Present: dry, intact, dressed (No drainage noted. )
[2020-01-25] MEDS: FERROUS SULFATE 325 MG TAB PO SCH (10:06)
[2020-01-25] MEDS: PRENATAL VIT27-FE FUMARATE-FOLIC ACID VIT TAB PO SCH (10:06)
[2020-01-25] MEDS ORDERED: diphenhydrAMINE 25 MG CAP PO PRN (10:17)
[2020-01-25] MEDS ORDERED: FLU VACC QUAD 2020-2021 (6 months +)/PF 60 0.5 ML SYRINGE IM ONE (12:00)
[2020-01-25] MEDS: IBUPROFEN 800 MG TAB PO PRN (17:19)
[2020-01-26] MEDS: IBUPROFEN 800 MG TAB PO PRN ×2 (00:27→05:08)
[2020-01-26] MEDS ORDERED: DIPHtheria,PERTUSSIS(ACELL),TETANUS VACCINE/PF 0.5 ML VIAL IM ONE (06:00)
--- NOTE | 2020-01-26 07:59 | Discharge Summary ---
Providers - Providers Date of Admission: 01/11/20 22:05 Date of discharge: 01/26/20 (desires d/c home) Attending physician: CHRIS BEEBE 01/24/20 15:11 Consult to Engine Pilot [CONS] Routine Reason For Exam: Primary care physician: CHRIS BEEBE Hospitalization Reason for admission: PPROM Condition: Good Pertinent studies: postop H&H 11.2/34.0 Procedures: repeat c/s Hospital course: uncomplicated repeat c/s and postop course Disposition: DC- TO HOME OR SELFCARE - Discharge Diagnoses (1) delivery delivered Status: Acute Core Measure Documentation - Palliative Care Palliative Care/ Comfort Measures: Not Applicable - Core Measures Any of the following diagnoses?: none Exam - Physical Exam Narrative exam: fundus firm, lochia scant, incision D&I, baby in NICU - encouraged continued pumping - Constitutional Vitals: Temp Pulse Resp BP Pulse Ox 98.5 F 91 H 18 120/75 100 01/26/20 00:20 01/26/20 00:20 01/26/20 06:08 01/26/20 00:20 01/26/20 00:20 General appearance: Present: no acute distress, well-nourished - EENT Eyes: Present: PERRL ENT: hearing intact, clear oral mucosa - Neck Neck: Present: supple, normal ROM - Respiratory Respiratory effort: normal Respiratory: bilateral: CTA - Cardiovascular Rhythm: regular - Extremities Extremities: pulses symmetrical, No edema - Abdominal General gastrointestinal: Present: soft, non-tender, non-distended, normal bowel sounds Female genitourinary: Present: normal - Integumentary Integumentary: Present: clear, warm, dry - Musculoskeletal Musculoskeletal: gait normal, strength equal bilaterally - Psychiatric Psychiatric: appropriate mood/affect, intact judgment & insight - Neurologic Neurologic: CNII-XII intact, moves all extremities Plan Activity: advance as tolerated Diet: regular Wound: open to air, keep clean and dry Follow up with: CHRIS BEEBE MD [Primary Care Provider] - 7 Days (Congratulations! Please call [phone] to schedule your incision check in 1 week. Call for any questions or concerns.) Prescriptions: Ferrous Sulfate [Feosol 325 MG tab] 325 mg PO BID #60 tablet Ibuprofen [Motrin 800 MG tab] 800 mg PO Q6H PRN #30 tablet PRN Reason: Pain oxyCODONE /ACETAMINOPHEN [Percocet 5/325 mg] 1 - 2 tab PO Q6HR PRN #20 tablet PRN Reason: Pain
[2020-01-26] MEDS: PRENATAL VIT27-FE FUMARATE-FOLIC ACID VIT TAB PO SCH (10:05)
[2020-01-26] MEDS: FERROUS SULFATE 325 MG TAB PO SCH (10:05)
[2020-01-26 11:48] VITALS: BP 120/68
[2020-01-26] MEDS ORDERED: FLU VACC QUAD 2020-2021 (6 months +)/PF 60 0.5 ML SYRINGE IM ONE (12:00)
== END 2020-01-26 11:30 | disposition home or self-care (01) | DRG 786 ==
LOC: TRG 20:51 → APU 21:02 → TRG 22:05 → LD 22:05 → OB 01-24 15:09
PROVIDERS: ADMIT Obstetrics & Gynecology; ATTEND Obstetrics & Gynecology
PROC: 10D00Z1 Extraction of Products of Conception, Low, Open Approach (ICD-10-PCS; principal; 2020-01-24)
PROC: 3E0234Z Introduction of Serum, Toxoid and Vaccine into Muscle, Percutaneous Approach (ICD-10-PCS; 2020-01-24)
DX: O42.912 Preterm premature rupture of membranes, unspecified as to length of time between rupture and onset of labor, second trimester (principal); O60.12X0 Preterm labor second trimester with preterm delivery second trimester, not applicable or unspecified; O34.211 Maternal care for low transverse scar from previous cesarean delivery; Z20.828 Contact with and (suspected) exposure to other viral communicable diseases; Z3A.22 22 weeks gestation of pregnancy; Z37.0 Single live birth; Z79.899 Other long term (current) drug therapy; O99.892 Other specified diseases and conditions complicating childbirth; N73.6 Female pelvic peritoneal adhesions (postinfective); Z23 Encounter for immunization
CPT/HCPCS: 36415; 76816; 81001; 85014; 85018; 85025; 85027; 86592; 86762; 86850; 86900; 86901; 90471; 90715; 94640; G0378; C1765; J0290; J0690; J0702; J1364; J1885; J2270; J2405; J2765; J3105; J3490; J7120; J7121; U0003